=== PATIENT | female | born 1950 | race Caucasian/White ===

== ENCOUNTER 2018-08-20 00:44 | Outpatient (CLI) | payer MEDICARE, BC, SELFPAY ==
--- NOTE | 2018-08-20 10:57 | DI.MAMMO_ITS ---
SYMPTOMS/DIAGNOSIS: SCREENING, Z12.31 BILATERAL SCREENING MAMMOGRAM: Mammograms were interpreted according to the usual protocol including computer analysis with CAD system, tomosynthesis and C view imaging. Comparison is made with exams from 2010 through 2016. The breasts are composed of scattered fibroglandular densities, breast density category B. No suspicious masses or suspicious microcalcifications are seen. There has been no significant change. IMPRESSION: Category 1B, negative mammogram. Routine screening is recommended. [facility] ASSESSMENT OF FINDINGS: Negative. Category 1. Patient will receive a letter notifying them of these results. BI-RADS category B. There are scattered areas of fibroglandular density.
== END 2018-08-20 01:04 ==
PROVIDERS: PCP Family Medicine; Visit Provider Family Medicine
DX: Z12.31 Encounter for screening mammogram for malignant neoplasm of breast (principal)
CPT/HCPCS: 77063; 77067

== ENCOUNTER → 2018-08-21 13:34 | Outpatient (BNVA) | payer MEDICARE, BC, SELFPAY | PROVIDERS: PCP Family Medicine; Referring Provider Family Medicine; Visit Provider Orthopaedic Surgery | DX: M17.12 Unilateral primary osteoarthritis, left knee (principal) | CPT/HCPCS: 20610; 99211; 99213; J7325 ==

== ENCOUNTER → 2018-11-25 10:57 | Outpatient (BNVA) | payer MEDICARE, BC, SELFPAY | PROVIDERS: PCP Family Medicine; Referring Provider Family Medicine; Visit Provider Orthopaedic Surgery | DX: M17.11 Unilateral primary osteoarthritis, right knee (principal) | CPT/HCPCS: 20610; 99211; 99213; J7325 ==

== ENCOUNTER → 2019-06-18 10:56 | Outpatient (BNVA) | payer MEDICARE, BC, SELFPAY | PROVIDERS: PCP Family Medicine; Referring Provider Family Medicine; Visit Provider Orthopaedic Surgery | DX: M17.12 Unilateral primary osteoarthritis, left knee (principal); M17.11 Unilateral primary osteoarthritis, right knee | CPT/HCPCS: 20610; 99211; 99213; J7325 ==

== ENCOUNTER 2019-08-14 11:25 | Outpatient (CLI) | payer MEDICARE, BC, SELFPAY ==
--- NOTE | 2019-08-14 10:59 | DI.RAD_ITS ---
EXAM: XR KNEE LT 2V AP,LAT INDICATION: oa left knee. COMPARISON: XR KNEE RT 2V AP,LAT from 08/14/2019 TECHNIQUE: 2D digital imaging was performed. FINDINGS: There are severe degenerative changes of the patellofemoral joint, with a foaa-fg-onro appearance. There is prominent spurring. A small joint effusion is seen. Grossly degenerative changes of the fe moral tibial joints, greater medially. There is some lateral subluxation of the tibia with respect t o the distal femur. Venous varicosities are seen medially. IMPRESSION: Severe degenerative changes of the patellofemoral joint.
--- NOTE | 2019-08-14 10:59 | DI.RAD_ITS ---
EXAM: XR KNEE RT 2V AP,LAT INDICATION: OA R KNEE. COMPARISON: RIGHT KNEE 3 VIEWS from 03/07/2015 TECHNIQUE: 2D digital imaging was performed. FINDINGS: Again noted are severe degenerative changes of the patellofemoral joint with prominent spurring and a zggb-[id number]-[id number] appearance. There is also spurring from the femoral condyles and tibial plateaus but n o significant joint space narrowing. IMPRESSION: Severe degenerative changes of the patellofemoral joint.
--- NOTE | 2019-08-14 11:00 | DI.RAD_ITS ---
EXAM: XR STANDING ALIGNMENT INDICATION: OA R KNEE. COMPARISON: No exams were available for comparison TECHNIQUE: 2D digital imaging was performed. FINDINGS: There is bilateral acetabular spurring. The hip joint spaces are well maintained. There is no sign ificant leg length discrepancy. There are some degenerative changes of both knees, with spurring fro m the femoral condyles, tibial plateaus as well as patellofemoral joints. Some venous varicosities a re seen greater on the right side of the lower leg. There is mild bilateral ankle joint space narrow ing. IMPRESSION: Degenerative changes of both knees. No significant leg length discrepancy.
== END 2019-08-14 11:45 ==
PROVIDERS: PCP Family Medicine; Referring Provider Family Medicine; Visit Provider Student in an Organized Health Care Education/Training Program
DX: M25.462 Effusion, left knee (principal); M25.562 Pain in left knee; M25.561 Pain in right knee; M17.11 Unilateral primary osteoarthritis, right knee; M17.12 Unilateral primary osteoarthritis, left knee
CPT/HCPCS: 20610; 99214; 73560; 77073; J1040; J7325

== ENCOUNTER → 2019-09-28 10:36 | Outpatient (BNVA) | payer MEDICARE, BC, SELFPAY | PROVIDERS: PCP Family Medicine; Referring Provider Family Medicine; Visit Provider Student in an Organized Health Care Education/Training Program | DX: M17.12 Unilateral primary osteoarthritis, left knee (principal); M17.11 Unilateral primary osteoarthritis, right knee; Z98.890 Other specified postprocedural states; I10 Essential (primary) hypertension | CPT/HCPCS: 99213 ==

== ENCOUNTER 2019-11-02 02:47 | Outpatient (CLI) | payer MEDICARE, BC, SELFPAY ==
[2019-11-02 13:11] LABS: ALT 48 U/L (14-59); AST 33 U/L (15-37); Albumin 3.8 g/dL (3.4-5.0); Alkaline Phosphatase 74 U/L (46-116); Anion Gap 8.2 mmol/L (3-11); BUN 12 mg/dL (7-18); CO2 29.8 mmol/L (21.0-32.0); CREATININE 0.58 mg/dL (0.55-1.02); Calcium 8.9 mg/dL (8.5-10.1); Calculated LDL 66 mg/dL; Chloride 100 mmol/L (98-107); Cholesterol 151 mg/dL (<200); Glucose 95 mg/dL (74-106); HDL Cholesterol 77 mg/dL (40-60); Potassium 3.3 mmol/L (3.5-5.1); Sodium 138 mmol/L (136-145); Total Protein 6.6 g/dL (6.4-8.2); Triglyceride 40 mg/dL (<150)
== END 2019-11-02 03:07 ==
PROVIDERS: PCP Family Medicine; Visit Provider Family Medicine
DX: I10 Essential (primary) hypertension (principal); E55.9 Vitamin D deficiency, unspecified; E78.00 Pure hypercholesterolemia, unspecified
CPT/HCPCS: 36415; 80053; 80061; 82306

== ENCOUNTER → 2019-11-05 09:37 | Outpatient (BNVA) | payer MEDICARE, BC, SELFPAY | PROVIDERS: PCP Family Medicine; Referring Provider Family Medicine; Visit Provider Student in an Organized Health Care Education/Training Program | DX: M17.11 Unilateral primary osteoarthritis, right knee (principal); M17.12 Unilateral primary osteoarthritis, left knee | CPT/HCPCS: 99212 ==

== ENCOUNTER 2019-11-26 01:29 | Outpatient (CLI) | payer MEDICARE, BC, SELFPAY ==
--- NOTE | 2019-11-26 10:15 | DI.US_ITS ---
APPROVED REPORT EXAM: Comprehensive 2D, Doppler, and color-flow Echocardiogram Patient Location: Out-Patient Thermal Technician: Adriana Marroquin RDCS (AE) Rhythm: NSR with BBB Indications: essential ( primary) hypertension I10 cardiac murmur R01.1 Conclusion Left Ventricle : The left ventricle is normal size. The left ventricular systolic function is normal. The left ventricular ejection fraction is within the normal range. Borderline left ventricular hyper trophy. Asymmetric septal thickening is noted. There is normal LV segmental wall motion. Impaired rel axation but normal diastolic filling. LVEF is estimated to be 55-60%. Right Ventricle : Right ventricle is normal in size. The right ventricular systolic function is appea rs normal. Atria : Left atrium is mildly dilated. The right atrium size is normal. Aortic Valve : Aortic valve leaflets are mildly thickened. Aortic valve is probably trileaflet. There is no aortic valvular stenosis. Mild aortic regurgitation. Mitral Valve : Mitral valve leaflets are mildly thickened, but open well. Mild mitral regurgitation. No evidence of mitral valve stenosis. Tricuspid Valve : Tricuspid valve leaflets are mildly thickened but open well. Mild tricuspid regurg itation. Great Vessels : IVC is normal in size and collapses >50% with inspiration. Estimated RVSP is 26-29 m mHg. There is no prior echocardiogram available for comparison. Wall motion Left Ventricle The left ventricle is normal size. The left ventricular systolic function is normal. The left ventric ular ejection fraction is within the normal range. Borderline left ventricular hypertrophy. Asymmetri c septal thickening is noted. There is normal LV segmental wall motion. Impaired relaxation but sweetie l diastolic filling. LVEF is estimated to be 55-60%. Right Ventricle The right ventricle is normal size. The right ventricular systolic function is appears normal. Atria Left atrium is mildly dilated. The right atrium size is normal. Aortic Valve Aortic valve leaflets are mildly thickened. Aortic valve is probably trileaflet. There is no aortic v alvular stenosis. Mild aortic regurgitation. Mitral Valve Mitral valve leaflets are mildly thickened, but open well. No evidence of mitral valve stenosis. Mild mitral regurgitation. Tricuspid Valve Tricuspid valve leaflets are mildly thickened but open well. Mild tricuspid regurgitation. Pulmonic Valve Pulmonic valve is not well visualized. Great Vessels The aortic root is normal in size. The ascending aorta is mildly dilated. IVC is normal in size and c ollapses >50% with inspiration. Estimated RVSP is 26-29 mmHg. Pericardium trivial circumfrencial pericardial effusion 2D Dimensions IVSd 1.25 cm F: 0.6-1.0 LV EDV A2C 107.6 mL PWd 1.10 cm F: 0.6 - 1.0 LV EDV A4C 71.5 mL LVDd 5.20 cm F: 3.8 - 5.2 LA Volume Index Biplane 42.9 mL/m2 LVDs 3.65 cm F: 2.2 - 3.5 LA Area A4C 20.83 cm2 Aortic Root 3.10 cm F: 2.7 - 3.3 LA Area A2C 23.39 cm2 RVID Base (AP4) 3.60 cm (M/F) 2.5-4.1 EF AP4 61.1 % RA Area A4C 18.88 cm2 EF AP2 50.2 % LVOT 1.95 cm (M/F) 1.5-2.5 EF BP 52.2 % Ascending Aorta 3.79 cm F: 2.3 - 3.1 IVC 2.04 cm LVEF (Teich) 56.4 % TAPSE 2.57 cm (M/F) <1.7 LVEF (Light's) 52.20 % F: 54 - 74 LV Volume 67.15 mL F: 46 - 106 LV Volume Index 36.49 mL/m2 F: 29 - 61 FS 29.70 % LV Diastology MV E' medial 0.042 (>0.07 m/s) E/A Ratio 0.6 LV E/e MED 13.35 (<14) PV S/D Ratio 1.83 MV E' lateral 0.060 (>0.1 m/s) TR Peak Velocity 2.57 m/s LV E/e LAT 9.25 (<14) Pulm Vein s 0.60 m/s Pulm Vein d 0.33 m/s Pulm Vein a 0.36 m/s LA vol/ BSA A2C s A-L 42.4 mL/m2 LA vol/ BSA A4C s A-L 38.2 mL/m2 Aortic Valve LVOT Area 3.00 cm2 AoV Area Vmax 2.14 cm2 LVOT Vmax 1.32 m/s AoV Area/ BSA (Vmax) 1.16 cm2/m2 LVOT Mean Stefan. 1.04 m/s CHRISTOPHE Mean Stefan. 2.44 cm2 LVOT Peak Gr. 7.0 mmHg CHRISTOPHE Mean Stefan. Index 1.32 cm2/m2 LVOT Mean Gr. 4.6 mmHg AV Regurg Decel. 1435 msec LVOT VTI 0.316 m AoV Vmax 1.86 (0.5-1.3 m/s) AoV Mean Stefan. 1.28 m/s AoV Peak Grad 13.8 mmHg LVOT SV 94.65 mL AoV Mean Grad 7.3 (<5 mmHg) AoV VTI 0.393 (0.18-0.25 m) AoV Area VTI 2.41 (2.5-4.5 cm2) AoV Area/ BSA (VTI) 1.31 cm/m2 Mitral Valve MV E Max Stefan. 0.56 (0.4-1.3 m/s) Vena Contracta 0.33 (0-0.3 cm) MV A Velocity 0.90 (0.4-1.3 m/s) RVOT Peak Gr. 1.99 mmHg E/A Ratio 0.60 RVOT Mean Gr. 0.95 mmHg MV Decel. Time 244 (160-240 msec) MV PHT 71 msec MVA PHT 3.10 cm2 PV Peak Velocity 0.79 (0.5-1.5 m/s) RVOT Peak Stefan. 0.71 m/s RVOT VTI 0.133 m Tricuspid Valve TR P. Gradient 26.5 mmHg TV Regurg Vmax 2.57 m/s RAP Estimate 3.00 mmHg RVSP 29.5 mmHg
== END 2019-11-26 01:49 ==
PROVIDERS: PCP Family Medicine; Visit Provider Family Medicine
DX: R01.1 Cardiac murmur, unspecified (principal); I10 Essential (primary) hypertension; I35.1 Nonrheumatic aortic (valve) insufficiency
CPT/HCPCS: 93306

== ENCOUNTER 2019-12-09 13:59 | Outpatient (CLI) | payer MEDICARE, BC, SELFPAY ==
[2019-12-09 15:16] LABS: HCT 38.2 % (36.0-46.0); HGB 12.5 g/dL (12.0-15.5); Mean Corp. HGB Concentration 32.7 g/dL (32.0-36.0); Mean Corpuscular Hemoglobin 30.1 pg (27.0-33.0); Mean Platelet Volume 8.5 fL (8.0-11.0); Platelet Count 253 x1000/uL (130-400); RBC 4.15 m/cumm (4.00-5.20); RBC Distribution Width 13.7 % (11.7-14.6); White Blood Cell Count 5.54 k/cumm (4.4-10.8)
[2019-12-09 16:16] LABS: Anion Gap 8.1 mmol/L (3-11); BUN 13 mg/dL (7-18); CO2 29.9 mmol/L (21.0-32.0); CREATININE 0.64 mg/dL (0.55-1.02); Calcium 8.9 mg/dL (8.5-10.1); Chloride 102 mmol/L (98-107); Glucose 100 mg/dL (74-106); Sodium 140 mmol/L (136-145)
== END 2019-12-09 14:19 ==
PROVIDERS: PCP Family Medicine; Visit Provider Student in an Organized Health Care Education/Training Program
DX: M25.561 Pain in right knee (principal); M17.11 Unilateral primary osteoarthritis, right knee; I10 Essential (primary) hypertension; Z01.818 Encounter for other preprocedural examination; Z01.812 Encounter for preprocedural laboratory examination
CPT/HCPCS: 36415; 80048; 85027

== ENCOUNTER 2020-05-05 13:00 | Outpatient (CLI) | payer MEDICARE, BC, SELFPAY | END 2020-05-05 13:20 | PROVIDERS: PCP Family Medicine; Visit Provider Student in an Organized Health Care Education/Training Program | DX: Z01.818 Encounter for other preprocedural examination (principal); M17.11 Unilateral primary osteoarthritis, right knee ==

== ENCOUNTER 2020-05-09 01:42 | Outpatient (CLI) | payer MEDICARE, BC, SELFPAY ==
[2020-05-09 10:12] LABS: HCT 38.4 % (36.0-46.0); HGB 12.8 g/dL (12.0-15.5); Mean Corp. HGB Concentration 33.3 g/dL (32.0-36.0); Mean Corpuscular Volume 90.1 fL (80-95); Mean Platelet Volume 8.5 fL (8.0-11.0); Platelet Count 251 x1000/uL (130-400); RBC 4.26 m/cumm (4.00-5.20); RBC Distribution Width 13.2 % (11.7-14.6); White Blood Cell Count 5.42 k/cumm (4.4-10.8)
[2020-05-09 11:16] LABS: Anion Gap 9.2 mmol/L (3-11); BUN 22 mg/dL (7-18); CO2 26.8 mmol/L (21.0-32.0); CREATININE 0.57 mg/dL (0.55-1.02); Calcium 8.8 mg/dL (8.5-10.1); Chloride 98 mmol/L (98-107); Glucose 100 mg/dL (74-106); Potassium 4.1 mmol/L (3.5-5.1); Sodium 134 mmol/L (136-145)
[2020-05-11 14:51] LABS: COVID-19 RT-PCR Result NEGATIVE (Negative)
== END 2020-05-09 02:02 ==
PROVIDERS: PCP Family Medicine; Visit Provider Student in an Organized Health Care Education/Training Program
DX: M25.561 Pain in right knee (principal); M17.11 Unilateral primary osteoarthritis, right knee; Z03.818 Encounter for observation for suspected exposure to other biological agents ruled out; Z01.818 Encounter for other preprocedural examination; Z01.812 Encounter for preprocedural laboratory examination
CPT/HCPCS: 36415; 80048; 85027; U0003

== ENCOUNTER → 2020-05-11 07:47 | Outpatient (BNVA) | payer MEDICARE, BC, SELFPAY | PROVIDERS: PCP Family Medicine; Referring Provider Family Medicine; Visit Provider Student in an Organized Health Care Education/Training Program | DX: R69 Illness, unspecified (principal) ==

== ENCOUNTER 2020-05-11 08:27 | Observation (INO) | payer MEDICARE, BC, SELFPAY ==
[2020-05-11] VITALS (9 sets, daily range): BP systolic 112–167; BP diastolic 61–90; PULSE 57–72; RESP 11–18; TEMP 36.2–36.6; O2SAT 94–100
[2020-05-11] MEDS: Celecoxib 200 MG CAP 400 MG PO (09:34)
[2020-05-11] MEDS: Acetaminophen 500 MG TAB 1000 MG PO (09:34)
[2020-05-11] MEDS: Gabapentin 300 MG CAP PO (09:34)
[2020-05-11] MEDS: Lactated Ringers 1,000 ML 80 ML IV ×2 (09:45→13:55)
[2020-05-11] MEDS: Bupivacaine 0.5% Pres-Free 30 ML VIAL (10:33)
[2020-05-11] MEDS: ceFAZolin 2 GM/50 ML BAG IVPB (11:00)
--- NOTE | 2020-05-11 11:06 | W.PM.DS.N ---
Date of service: 05/11/20 DS: Diagnosis Discharge Diagnosis (1) Localized osteoarthritis of right knee: Status: Chronic Discharge Plan Disposition Patient Disposition: HOME Condition: Good Discharge Details Reason For Visit: R TOTAL KNEE Admit Date/Time: 05/11/20 08:27 Admit Provider: Alex Cota Attending Provider: Alex Cota Primary Care Provider: Nicci Castelan [facility] Hospital Course: Patient was admitted to the medical/surgical floor following the procedure. The surgery was tolerated well without any notable medical, surgical, or anesthetic complications. Mobilization began postoperatively. Claire was voiding spontaneously. Vitals were stable. Physical therapy worked with the patient and was cleared for discharge home. No acute medical issues. Pain was controlled on oral regimen. Home Meds and New Rx's Prescriptions: New celecoxib 200 mg capsule 200 mg PO BID PRN (Reason: pain) Qty: 60 RF: 1 aspirin 81 mg tablet,delayed release (DR/EC) 81 mg PO BID Qty: 60 RF: 0 acetaminophen 500 mg tablet 1,000 mg PO Q8H PRN (Reason: pain) Qty: 90 RF: 3 pantoprazole 40 mg tablet,delayed release (DR/EC) 40 mg PO DAILY Qty: 30 RF: 0 docusate sodium [Colace] 100 mg capsule 100 mg PO BID PRNQty: 10 RF: 0 oxycodone 5 mg tablet 5 mg PO Q6H PRN PRNQty: 16 RF: 0 ondansetron 4 mg tablet,disintegrating 4 mg PO Q8H PRNQty: 6 RF: 0 Continued hydrochlorothiazide 25 mg tablet 25 mg PO DAILY Qty: 90 RF: 5 losartan 100 mg tablet 100 mg PO DAILY Qty: 90 RF: 5 potassium chloride 20 mEq tablet extended release 20 meq PO DAILY Qty: 90 RF: 5 magnesium 250 MG tablet 500 mg PO HS RF: 0 cholecalciferol (vitamin D3) 1,000 UNIT capsule 1,000 unit PO HS RF: 0 ascorbic acid (vitamin C) [Vitamin C] 250 MG tablet 500 mg PO DAILY PRNRF: 0 vitamin B complex 1 EACH tablet 1 ea PO DAILY RF: 0 Co Q-10 (with Vit E) 1 EACH capsule 1 ea PO DAILY RF: 0 atorvastatin 40 mg tablet 40 mg PO HS RF: 0 doxazosin 1 mg tablet 1 mg PO HS RF: 0 Discontinued ASPIRIN 81 MG tablet 81 mg PO DAILY RF: 0 Discharge Instructions Additional Instructions: Dr. Cota?s Total Knee Discharge Instructions Activity: The most important activity is to walk. You should try to take short walks a few times a day. It is important that when resting you work on keeping the knee straight. Avoid putting a pillow behind the knee as this will encourage flexion. Work on range of motion exercises as provided by Physical Therapy and the preoperative booklet. - Start outpatient physical therapy within 2 weeks. - You should wear the KO hose on both legs for 2 weeks. Dressing: Keep the surgical dressing (Mepilex) in place for at least one week. If you went home on the surgical day, you should remove the PASCUAL wrap on the second day and then apply the KO hose. The dressing may get wet after 3 days but avoid soaking the dressing. If it gets wet, just lightly pat dry. Most patient prefer to cover with ClingWrap or Saran Wrap to keep the dressing dry. After the first week, the dressing may be removed and replaced with light gauze and tape or nothing. Medications: - You should take Tylenol and anti-inflammatory Celebrex as your primary pain control medications - You have been prescribed a stronger pain medication Oxycodone for breakthrough pain, take as needed as prescribed. - You have also been prescribed a stomach acid reduction agent Pantoprozole to help reduce stomach acid and reflux. - You will be taking Aspirin 81mg twice a day for DVT prevention unless instructed otherwise. - If you have constipation you should take Colace or Miralax (both [id number]). It takes most people 3-4 days to have a bowel movement. - You should use the ice machine to help treat swelling and pain. As long as there is a barrier between the CryoCuff and your skin you can keep it on as much as desired. It is usually recommended to do about 30 minutes of treatment and then take a break for 30. Follow-up: 2 weeks. You should also call physical therapy to work on scheduling outpatient therapy sessions which can begin at 2 weeks. If you have any acute concerns or questions, please do not hesitate to contact the office at [phone]. You may contact Dr. Cota with any questions after hours through the hospital at [phone] or on his cell phone at [phone]. Referrals: [facility] [Provider Group] Alex Cota MD [ [facility] STAFF PHYSICIAN] - Activity:: Activity as Tolerated Equipment/Supplies:: Walker Diet:: As Tolerated Discharge Orders Discharge Orders: Discharge Order (Routine); Ordered 05/11/20 Ordered By: Alex Cota DS: Summary Status at Discharge Functional status at discharge: uses cane/walker Overall status at discharge: patient is progressing back to baseline Mental Status: mental status grossly normal Speech and Movement: speech and movement normal Mood: congruent mood Affect: normal affect Exam Psych Mental Status: mental status grossly normal Speech and Movement: speech and movement normal Mood: congruent mood Affect: normal affect DS: Data Vitals/I&O Vitals and I&O: Vital Signs Temperature 36.5 C 05/11/20 09:17 Pulse 72 05/11/20 09:17 Pulse Rhythm Regular 05/11/20 09:17 Respiratory Rate 16 05/11/20 09:17 Respiratory Effort 05/11/20 09:17 Respiratory Depth Normal 05/11/20 09:17 Respiratory Pattern Normal 05/11/20 09:17 Blood Pressure 140/89 05/11/20 09:17 Pulse Oximetry 97 05/11/20 09:17 Oxygen Delivery Method Room Air 05/11/20 09:17 Oxygen Flow Rate 0 05/11/20 09:17 Pain Level 0 05/11/20 09:17 Intake & Output 05/10/20 05/10/20 05/11/20 11:59 23:59 11:59 Weight 73.028 kg 71.9 kg [facility] Medical History Arthritis of left knee (Inactive) Chondromalacia of patella (Resolved) Decreased hearing of both ears (Acute 07/05/15) Essential hypertension (Acute) Family history of colon cancer (Resolved) Hx of head injury (Acute) 2009 with major blood loss, with hospitalization and transfusion. Per pt. all is resolved. Hypercholesterolemia (Acute 04/06/13) Left bundle branch block (Chronic) echo and MPI normal Normal colonoscopy (Acute) Systolic murmur (Acute) F/U with Dr. Castelan, regarding murmur. No issues at this time. Vitamin D deficiency (Chronic) Surgical History Hx of tonsillectomy (Chronic) as a child Hx of wisdom tooth extraction (Acute) Family History Mother , 65 Essential hypertension Stroke Father , 75 Colon cancer Brother Essential hypertension Stroke Maternal Grandfather Essential hypertension Heart disease Paternal Grandfather No problems noted. Maternal Grandmother , 83 Diabetes Paternal Grandmother Heart disease Son , 7 days Ornithine transcarbamoylase deficiency Down syndrome Son , 5 days Ornithine transcarbamoylase deficiency Daughter Ornithine transcarbamoylase deficiency Daughter Ornithine transcarbamoylase deficiency Thyroid cancer Social History Smoking/Tobacco Use Status: Never Alcohol Intake: current Alcohol Intake frequency: a few times a week Alcohol type: wine Drug use: Rarely Substance use type: marijuana Caregiver/Support person: No Household members: spouse, family and other Details: daughter,son-in-law and 2 grandchildren Communication Needs: Hard of Hearing Do you need help understanding health information?: Rarely Pets and animals: Yes Pets and animals: cat(s) and dog(s) Do you think of yourself as: straight/heterosexual Current gender identity: female What is your relationship status?: How often do you talk on the phone with friends or family?: once per week How often do you get together with friends or relatives?: twice per week How often do you attend baptism or gnosticist services?: decline to answer Do you belong to any clubs or organized social groups?: yes Panel score (0-1 are the most socially isolated patients): 3 What type of physical activity do you participate in: walking, weight lifting and other Details: hiking with poles Frequency: 3-4 times per week Ana/Gnosticist: None Special ana needs: No Seatbelt use: always Helmet use: Yes Helmet use: always Drive intox or ride w/intox service car driver: No Do you feel safe in your relationship?: Yes
[2020-05-11] MEDS: Bupivacaine 0.25% Pres-Free 30 ML VIAL (11:31)
[2020-05-11] MEDS: Ketorolac 30 MG/ML VIAL (11:31)
[2020-05-11] MEDS: Normal Saline 20 ML VIAL (11:31)
--- NOTE | 2020-05-11 12:20 | ROE_ITS ---
Date of service: 05/11/20 Time of Service: 12:20 Operative Note Operative Note DATE OF PROCEDURE: 05/11/20 PRE-OP DIAGNOSIS: Right Knee Osteoarthritis POST-OP DIAGNOSIS: same PROCEDURE: Right Total Knee Replacement SURGEON: Alex Cota DIRECT CARE PROFESSIONAL: Randall Covington ANESTHESIA: regional and spinal ESTIMATED BLOOD LOSS: 200 PATHOLOGY: none sent TOURNIQUET TIME: 0 COMPLICATIONS: None Patient was transported to: PACU Patient's condition: stable Implants: 1. Depuy Attune Cementless Cruciate Retaining Femoral Component, Size 4 2. Depuy Attune Cementless Rotating Platform Tibial Component, Size 3 3. Depuy Attune 4x5mm CR/RP Poly 4. Depuy Attune Patellar Component, Size 35mm Indications: I have seen Claire in clinic for symptoms of knee arthritis, confirmed with radiographic findings. Claire has exhausted nonoperative methods and was having significant limitations in daily function and desired better function and less pain. I discussed the technical details of a knee replacement. I explained the risks of the procedure to include, but not limited to, bleeding, infection, pain, stiffness, fracture, damage to nerves and vessels, damage to muscles and tendons, loosening, need for repeat procedure, blood clot and cardiopulmonary demise. Despite these risks, Claire elected to proceed. Findings: There was significant signs of arthritis throughout the knee, in all 3 compartments with significant patellar deformity. Procedure Description: Claire was greeted in the preoperative holding area where the correct side was identified and marked. The consent was reviewed with the patient and signed. The history and physical was updated. All questions were answered. Preoperative medications were administered: Acetaminophen 1000mg, Celebrex 400mg, and Gabapentin 300mg. An adductor canal block was then administered by the anesthesia team in the PACU. Claire was taken back to the operating room. A spinal anesthestic was then administered. The patient was placed into the supine position on the operating room table. A nonsterile tourniquet was placed high onto the leg but only used for cementing. Posts were placed for positioning during the procedure. All bony prominences were well padded. Prophylactic antibiotics in the form of Cefazolin were administered. 1g of Tranxemic Acid was given intravenously within 30 minutes of incision. The right leg was then prepped with Chloraprep and draped in a standard fashion with impervious stockinette. A second prep with Chloraprep was performed prior to application of Iodine impregnated skin protection. A timeout to confirm correct identity, side and site, procedure, allergies, anesthesia, and medical concerns was performed. With the knee in some flexion, a midline incision was made overlying the knee. Full thickness skin flaps were raised once the extensor mechanism was encountered. These were raised medially and laterally. Any bleeding was controlled with electrocautery. Once the extensor mechanism was fully exposed, a medial parapatellar arthrotomy was performed in a flexed position. All bleeding from the arthrotomy and the geniculate arteries was coagulated. A medial subperiosteal peel was performed with electrocautery to the midcoronal plane. The fat pad was removed while keeping the patellar tendon protected. The anterior distal femur synovium was removed for later visualization. The ACL and PCL were resected and the anterior horn of the lateral meniscus was transected. The knee was then flexed with the patella everted. Large osteophytes from the tibia were removed. Large o steophytes from the femur were removed. Large osteophytes from the patellar were removed and there was some noted deformity due to chronic maltracking. Using a step drill, and based on preoperative templating, the femoral canal was entered. This was done with a step drill without any difficulty. The intramedullary distal femoral cut guide was inserted, set to a 5 degree valgus cut and 9mm cut thickness. There was some hypoplasia of the lateral femoral condyle and any remnant cartilage of the medial femoral condyle was removed for appropriate thickness. The distal femoral cut guide was then held in position and pinned. With the soft tissues protected, the distal cut was performed. This was passed over a few times to ensure a planar cut. I then turned attention to the tibia. The extramedullary guide was placed onto the leg. The distal aspect was slid medial to adjust for position of center of ankle and stay in line with shaft of the tibia. Approximately 3-5 degrees of posterior slope was kept in the proximal cutting guide. The center of the guide was aligned with the PCL. The stylus was used to assess cut thickness. The medial side, most involved side, was set for a 6mm cut which corresponded to 8mm laterally. This was then held in position and pinned into place with 2 additional pins and a cross pin for stability. The medial and lateral collateral ligaments were protected and the cut was performed. With this completed, it was assessed and noted to be of appropriate dimensions. The guide was removed. A spacer block was inserted and the knee was brought into extension. The 5mm spacer block provided full extension, without hyperextension and with stability of both the medial and lateral collateral ligaments was assessed. The pins from the femur and the tibia were then removed. The distal femur was then sized. The anterior stylus was placed onto the lateral ridge of the anterior femur. This indicated a size 4 femur. The external rotation of the guide was adjusted to 5 degrees to match the epicondylar axis, perpendicular to [place]?s line. The 4-in-1 cutting guide was the placed. The posterior medial femur cut was evaluated and appeared of good thickness. The spacer block was inserted underneath the cutting guide and stability was confirmed in 90 degrees of flexion. An micheal wing was used to confirm appropriate position of the anterior cut to avoid notching. This cutting guide was ensured to be flush on the cut surface and then pinned into place with headed pins. While protecting the soft tissues, quad tendon, and collateral ligaments, the anterior and posterior cuts were performed with a saw. The central two pins were removed and the posterior and anterior chamfers were cut next. The notch-cutting guide was placed. This was pinned to lateralize the femoral component as much as possible while keeping it flush on the cut surface. This was then pinned into position. A reciprocating saw was used to make the notch cut. A rasp smoothed the cut surfaces. The medial and lateral menisci were removed. A trial femoral component was then inserted, impacted down to the cut surfaces, and the lug holes were drilled. A provisional trial tibial component was placed and the knee was brought through range of motion. There was noted to be excellent extension and flexion. There was no significant instability. The patella was tracking without thumbs. A size 5mm polyethylene component provided the best range of motion and stability with less than 2mm gapping with medial and lateral stress and full extension without significant hyperextension. The tibial cut surface was fully exposed. The tibia was then sized as a 3. The tibia had been previously marked during trialing to correspond to the center of the tibial component to help with rotation. The trial was aligned to this randall, approximately rotated to the medial 1/3rd of the tibial tubercle. The trial was pinned into place. The tibia was prepared with a reamer and a keel punch and lug holes. The knee was then brought into extension and the patella was measured as 14mm in the lowest trough. Using the patellar clamp and cut guide, this was resected to a flat surface with at least 13mm of thickness remaining. The size 35 patella fit the best. This was oriented and then clamped into position. The lugs were drilled. The trial components were removed. The final components were opened on the back table. The periosteal and capsular tissues, especially posteriorly, around the knee were then systematically injected with a periarticular cocktail consisting of 50cc 0.25% Marcaine, 30mg Ketorolac, 20cc of Exparal and 50cc of injectable saline. The knee was thoroughly irrigated with a pulse lavage and dried. Irrisept was also used to irrigate the tissues. On the back table, with the implants opened, the cement was mixed. One batche of high viscosity cement were prepared with vacuum assistance. After the cement was ready a small amount was placed on the cut surface of the patella and the patellar button was clamped into position and held. During this process attention was turned to the gutters of the knee and for all interfaces for any excess cement. While the cement was hardening, the cementless knee components were placed. Starting with the tibial component, the tibia was subluxed anteriorly and the lug holes of the component were lined up. The tibia was then impacted with an impactor and mallet until the tibial component was in contact with the tibia. The final polyethylene component was inserted. Then, the femoral component was inserted. The lug holes were aligned and the component was impacted into position. The knee was irrigated with Irrisept chlorhexadine solution. This was allowed to sit in the knee for 3 minutes. After the cement had finally cured, approximately 15min, the clamp was removed from the patella and the knee was taken through range of motion. The patella was tracking with a no-thumbs technique. The capsule was then reapproximated with a No. 1 Vicryl at multiple locations. The capsule was finally closed with a No. 2 Stratafix, barbed suture. The tourniquet was then released and the arthrotomy appeared watertight without significant bleeding. The second dosing of 1g TXA was started. Deep tissues were then reapproximated with 0 Vicryl and 2-0 Vicryl. The skin was closed with a running 3-0 Monocryl in a subcuticular fashion. This was reinforced with skin glue. A Mepilex silver dressing was applied along with a [id number] PASCUAL wrap. A CryoCuff was applied. Claire was transferred to the hospital bed without difficulty an suffering no apparent complication. Claire has a good prognosis. Physical therapy will start today and without restrictions, weight-bearing as tolerated. Aspirin 81mg BID will be used for DVT prophylaxis.
[2020-05-11] MEDS: Ondansetron 4 MG/2 ML VIAL IVP (14:33)
--- NOTE | 2020-05-11 14:42 | IN_ITS ---
Date of service: 05/11/20 Time of Service: 14:42 PT Notes Visit Reasons: R TOTAL KNEE Physical Therapy Inpatient Initial Evaluation Date: 05/11/2020 Referring Doctor: Alex Cota MD PT Orders: PT CONSULT: Status post Ortho surgery. Status post right TKA. Precautions: Fall. Standard. WBAT on right LE Patient Profile/Admitting Diagnosis: This is a male that PMHX: Tear of the supraspinatus tendon Varicose veins of lower extremity Localized osteoarthritis of right knee Localized osteoarthritis of left knee Vitamin D deficiency Hypercholesterolemia Essential hypertension Decreased hearing of both ears Left bundle branch block Social History/Home Situation: Claire lives with and 6 kids in a private home with 2-3 steps to enter and a rail on one side. She was independent with all aspects of ADLs without the need for an assistive ambulatory device or adaptive equipment prior to surgery. Equipment Owned/DME: Front wheeled walker Subjective: Claire complained about dizziness during mobility assessment, vomited x1. She still stated that she would want to go home as she has her and her 6 kids who will be able to provide assistance for her as needed. Objective: General Observation: PASCUAL wraps on right LE. IV right UE. Mental Status: Alert and oriented x4 Pain: 2?3/10 ROM: Right Upper Extremity: Shoulder Flexion WFL. Shoulder abduction WFL. Elbow flexion WFL. Wrist flexion WFL. Opening and closing of hand WFL. Left Upper Extremity: Shoulder Flexion WFL. Shoulder abduction WFL. Elbow flexion WFL. Wrist flexion WFL. Opening and closing of hand WFL. Right Lower Extremity: Hip flexion WFL. Hip abduction WFL. Knee flexion allows up to 100 degrees. Knee extension 0 degrees. Ankle dorsiflexion WFL. Ankle plantarflexion WFL. Left Lower Extremity: Hip flexion WFL. Hip abduction WFL. Knee flexion WFL. Ankle dorsiflexion WFL. Ankle plantarflexion WFL. Strength: Right Upper Extremity: Shoulder flexors 5/5. Shoulder abductors 5/5. Elbow flexors 5/5. Elbow extensors 5/5. Aviation Survival Technician strong. Left Upper Extremity: Shoulder flexors 5/5. Shoulder abductors 5/5. Elbow flexors 5/5. Elbow extensors 5/5. Aviation Survival Technician strong. Right Lower Extremity: Hip flexors 5/5. Hip abductors 5/5. Knee flexors 3-/5. Knee extensors 3-/5. Ankle dorsiflexors 5/5. Ankle plantarflexors 5/5. Left Lower Extremity:Hip flexors 5/5. Hip abductors 5/5. Knee flexors 5/5. Knee extensors 5/5. Ankle dorsiflexors 5/5. Ankle plantarflexors 5/5. Sensation: DIminished on B LE with R>L as to pressure on bilateral lower extremities due to anesthesia. Bed Mobility/Transfers: Supine to sit standby assist Sit to supine contact-guard assist Sit to stand minimal assist Stand to sit contact-guard assist Bed to chair minimal assist Chair to bed minimal assist Gait: Patient tolerated short distance ambulation of 80 feet using front wheeled walker with step to gait pattern with contact-guard assist and wheelchair follow of nurse Griffin. Patient vomited x1 right after ambulation activity. Balance: Static Sitting: Good Dynamic Sitting: Good Static Standing: Fair Dynamic Standing: Fair Special Tests: Mobility Limitations Standardized Measure [facility] 6 clicks Basic Mobility Inpatient Short Form: Raw Score: 1750% deficit CMS Score: Informed Consent/Education: Patient instructed in purpose of PT consult and plan of care. Assessment: Claire demonstrates functional mobility decline requiring the use of a front wheeled walker for all mobility ADL performance, difficulty with walking, and weakness on the left knee major muscle groups resulting from postoperative status. Claire is a 69-year-old female with primary unilateral osteoarthritis of the right knee status post right total knee arthroplasty on postoperative day 0. Patient presents with clinical signs and symptoms consistent with current/ admitting diagnoses that have resulted to mobility limitations, gait instability, generalized weakness, and impairment of motor control as demonstrated by the following impairment level findings: 1. Decreased strength to R LE major muscle groups 2. Impaired standing balance 3. Impaired activity tolerance 4. Limitation of joint range of motion in R knee Impairments are contributing to the following functional limitations: 1. Inability to safely ambulate without assistive device and physical assistance 2. Increase completion time for mobility ADL performance 3. Increased fall risk 4. Inability to negotiate steps alone safely Patient is assessed as a 36449 moderate complexity based on the following: History: 69-year-old female with impairment level findings, functional limitations, and past medical history as indicated above Examination: Demonstrable impairment in strength, balance, and mobility level with underlying impairments and functional limitations as documented above Presentation:Evolving Decision Makin moderate complexity Goals: Goals X 3 days 1. Supine-Sit independent 2. Sit-Supine independent 3. Sit-Stand independent 4. Stand-Sit independent 5. Bed-Chair independent 6. Chair-Bed independent 7. Independent gait on level surface with use of least restrictive device for at least 300 feet without report of pain nor dyspnea 8. Independent stair negotiation while holding onto bilateral rails for at least 10 steps without report of pain nor dyspnea 9. Independent with home exercise program 10. Good static and dynamic standing balance/tolerance Plan of Care/Treatment Plan: 1-2x/day, 7 days/week x 1 week. Plan of care has been reviewed with the INPATIENT NURSING AIDE providing the service under Physical Therapy direction. Initiate Physical Therapy intervention for strengthening, bed mobility, transfers, gait, stairs, balance training, use of assistive device. DISCHARGE RECOMMENDATIONS: Home when medically cleared by ortho surgeon. TREATMENT CODE/TIME: 70324 x 20 minutes, 19504 x 28 beginning at 13:52 PM. Thank you for the opportunity to participate in the care of this patient. Avelina Garcia PT, DPT, CLT [facility] [place], [place]
[2020-05-11] MEDS: ceFAZolin 1 GM/50 ML BAG IVPB (18:03)
== END 2020-05-11 20:01 | disposition home or self-care (01) ==
LOC: PDS 13:07 → MS 13:09
PROVIDERS: Admitting Provider Student in an Organized Health Care Education/Training Program; PCP Family Medicine; Visit Provider Student in an Organized Health Care Education/Training Program
PROC: 0SRD0J9 Replacement of Left Knee Joint with Synthetic Substitute, Cemented, Open Approach (ICD-10-PCS; CPT 27447; principal; 2020-05-11 10:00)
DX: M17.11 Unilateral primary osteoarthritis, right knee (principal); M25.561 Pain in right knee; Z96.651 Presence of right artificial knee joint; I10 Essential (primary) hypertension; E78.00 Pure hypercholesterolemia, unspecified; G89.18 Other acute postprocedural pain
CPT/HCPCS: 27447; C1776; 76942; 97162; 97530; NC; G0378; J0690; J1100; J1885; J2405; J3490

== ENCOUNTER 2020-05-27 12:02 | Outpatient (CLI) | payer MEDICARE, BC, SELFPAY ==
--- NOTE | 2020-05-27 11:45 | DI.RAD_ITS ---
EXAM: XR KNEE RT 1V CLINICAL HISTORY: postop. TECHNIQUE: 2D digital imaging was performed. COMPARISON: CR XR KNEE LT 2V AP,LAT from 08/14/2019 CR XR KNEE RT 2V AP,LAT from 08/14/2019 CR XR STANDING ALIGNMENT from 05/27/2020 FINDINGS: BONES: No acute fracture is present. No bony destructive lesion is seen. A total knee prosthesis is noted. The components appear well aligned. JOINTS: The knee is normally aligned. A joint effusion is seen. IMPRESSION: Right total knee prosthesis. DATA REPOSITORY: RADIATION DOSE DELIVERED:
--- NOTE | 2020-05-27 11:45 | DI.RAD_ITS ---
EXAM: XR STANDING ALIGNMENT CLINICAL HISTORY: postop. TECHNIQUE: 2D digital imaging was performed. Standing AP views were performed from the pelvis throu gh the ankles. COMPARISON: CR XR STANDING ALIGNMENT from 08/14/2019 FINDINGS: BONES: No acute fracture is present. No bony destructive lesion is seen. At the level of the femoral heads, there is a mild overall leg length discrepancy with the right femoral head projecting a few mi llimeters higher than the left. There is bilateral acetabular spurring. JOINTS: Patient is now status post right total knee prosthesis. Degenerative changes are again noted of the left knee. There are mild degenerative changes of both ankles. SOFT TISSUE: Varicosities are seen in the soft tissues of the medial right lower leg. IMPRESSION: Status post right total knee prosthesis. Mild leg length discrepancy. DATA REPOSITORY: RADIATION DOSE DELIVERED:
== END 2020-05-27 12:22 ==
PROVIDERS: PCP Family Medicine; Referring Provider Family Medicine; Visit Provider Student in an Organized Health Care Education/Training Program
DX: Z96.651 Presence of right artificial knee joint (principal); Z47.1 Aftercare following joint replacement surgery; I10 Essential (primary) hypertension
CPT/HCPCS: 73560; 77073

== ENCOUNTER → 2020-06-23 13:12 | Outpatient (BNVA) | payer MEDICARE, BC, SELFPAY | PROVIDERS: PCP Family Medicine; Referring Provider Family Medicine; Visit Provider Student in an Organized Health Care Education/Training Program | DX: Z96.651 Presence of right artificial knee joint (principal); Z47.1 Aftercare following joint replacement surgery; M17.12 Unilateral primary osteoarthritis, left knee; M17.11 Unilateral primary osteoarthritis, right knee; I10 Essential (primary) hypertension ==

== ENCOUNTER 2020-07-22 02:34 | Outpatient (CLI) | payer MEDICARE, BC, SELFPAY ==
[2020-07-23 23:41] LABS: COVID-19 RT-PCR Result NEGATIVE (Negative)
== END 2020-07-22 02:54 ==
PROVIDERS: PCP Family Medicine; Visit Provider Student in an Organized Health Care Education/Training Program
DX: M17.12 Unilateral primary osteoarthritis, left knee (principal)
CPT/HCPCS: U0003

== ENCOUNTER 2020-07-22 07:58 | Outpatient (CLI) | payer MEDICARE, BC, SELFPAY ==
[2020-07-22 11:07] LABS: HCT 36.5 % (36.0-46.0); MCH 29.6 pg (27.0-33.0); MCHC 32.9 % (32.0-36.0); MCV 90.1 fL (80-95); MPV 8.7 fL (8.0-11.0); Platelet Count 261 10^3/uL (130-400); RBC 4.05 10^6/uL (3.93-5.22); RDW 13.2 % (11.7-14.6); RDW-SD 44.1 fL; WBC 4.59 10^3/uL (4.4-10.8)
[2020-07-22 11:53] LABS: Anion Gap 6.1 mmol/L (3-11); BUN 12 mg/dL (7-18); CO2 29.9 mmol/L (21.0-32.0); Calcium 9.1 mg/dL (8.5-10.1); Chloride 97 mmol/L (98-107); Glucose 96 mg/dL (74-106); Potassium 3.8 mmol/L (3.5-5.1); Sodium 133 mmol/L (136-145)
== END 2020-07-22 08:18 ==
PROVIDERS: PCP Family Medicine; Visit Provider Student in an Organized Health Care Education/Training Program
DX: M17.12 Unilateral primary osteoarthritis, left knee (principal); Z01.818 Encounter for other preprocedural examination
CPT/HCPCS: 36415; 80048; 85027; U0003

== ENCOUNTER → 2020-07-26 07:43 | Outpatient (BNVA) | payer MEDICARE, BC, SELFPAY | PROVIDERS: PCP Family Medicine; Referring Provider Family Medicine; Visit Provider Student in an Organized Health Care Education/Training Program | DX: R69 Illness, unspecified (principal) ==

== ENCOUNTER 2020-07-26 09:32 | Observation (INO) | payer MEDICARE, BC, SELFPAY ==
[2020-07-26] VITALS (8 sets, daily range): BP systolic 127–173; BP diastolic 72–99; PULSE 53–72; RESP 13–19; TEMP 35.3–36.7; O2SAT 96–100
[2020-07-26] MEDS: Gabapentin 300 MG CAP PO (10:12)
[2020-07-26] MEDS: Celecoxib 200 MG CAP 400 MG PO (10:12)
[2020-07-26] MEDS: Acetaminophen 500 MG TAB 1000 MG PO ×2 (10:12→16:29)
[2020-07-26] MEDS: Lactated Ringers 1,000 ML 80 ML IV (10:13)
[2020-07-26] MEDS: ceFAZolin 2 GM/50 ML BAG IVPB (11:44)
[2020-07-26] MEDS: Ketorolac 30 MG/ML VIAL (12:31)
[2020-07-26] MEDS: Bupivacaine 0.25% Pres-Free 30 ML VIAL (12:32)
[2020-07-26] MEDS: Normal Saline 20 ML VIAL (12:33)
[2020-07-26] MEDS: ceFAZolin 1 GM/50 ML BAG IVPB (16:29)
--- NOTE | 2020-07-26 16:43 | DSE_ITS ---
Date of service: 07/26/20 Time of Service: 16:43 DS: Diagnosis Discharge Diagnosis (1) Localized osteoarthritis of left knee: Status: Acute Discharge Plan Disposition Patient Disposition: HOME Condition: Good Discharge Details Reason For Visit: Left TKA Admit Date/Time: 07/26/20 09:32 Admit Provider: Alex Cota Attending Provider: Alex Cota Primary Care Provider: Nicci Castelan [facility] Course Hospital Course: Patient was admitted to the medical/surgical floor following the procedure. The surgery was tolerated well without any notable medical, surgical, or anesthetic complications. Mobilization began postoperatively. She was voiding spontaneously. Vitals were stable. Physical therapy worked with the patient and was cleared for discharge home. No acute medical issues. Pain was controlled on oral regimen. Home Meds and New Rx's Prescriptions: New aspirin 81 mg tablet,delayed release (DR/EC) 81 mg PO BID Qty: 60 RF: 0 acetaminophen [Tylenol Extra Strength] 500 mg tablet 500 mg PO Q6H PRNQty: 90 RF: 0 pantoprazole [Protonix] 40 mg tablet,delayed release (DR/EC) 40 mg PO DAILY Qty: 30 RF: 0 oxycodone 5 mg tablet 5 mg PO Q4H PRNQty: 18 RF: 0 celecoxib [Celebrex] 200 mg capsule 200 mg PO BID Qty: 60 RF: 0 Continued hydrochlorothiazide 25 mg tablet 25 mg PO DAILY Qty: 90 RF: 5 losartan 100 mg tablet 100 mg PO DAILY Qty: 90 RF: 5 potassium chloride 20 mEq tablet extended release 20 meq PO DAILY Qty: 90 RF: 5 magnesium 250 MG tablet 500 mg PO HS RF: 0 cholecalciferol (vitamin D3) 1,000 UNIT capsule 1,000 unit PO HS RF: 0 ascorbic acid (vitamin C) [Vitamin C] 250 MG tablet 500 mg PO DAILY PRNRF: 0 vitamin B complex 1 EACH tablet 1 ea PO DAILY RF: 0 Co Q-10 (with Vit E) 1 EACH capsule 1 ea PO DAILY RF: 0 atorvastatin 40 mg tablet 40 mg PO HS RF: 0 doxazosin 1 mg tablet 1 mg PO HS RF: 0 Discontinued acetaminophen 500 mg tablet 1,000 mg PO Q8H PRN (Reason: pain) Qty: 90 RF: 3 aspirin [Aspir-81] 81 mg Tablet,Delayed Release (Dr/Ec) 81 mg PO DAILY RF: 0 No Action ondansetron 4 mg tablet,disintegrating 4 mg PO Q8H PRNQty: 6 RF: 0 Discharge Instructions Additional Instructions: Dr. Cota?s Total Knee Discharge Instructions Activity: The most important activity is to walk. You should try to take short walks a few times a day. It is important that when resting you work on keeping the knee straight. Avoid putting a pillow behind the knee as this will encourage flexion. Work on range of motion exercises as provided by Physical Therapy and the preoperative booklet. - Start outpatient physical therapy within 2 weeks. - You should wear the KO hose on both legs for 2 weeks. Dressing: Keep the surgical dressing (Mepilex) in place for at least one week. If you went home on the surgical day, you should remove the PASCUAL wrap on the second day and then apply the KO hose. The dressing may get wet after 3 days but avoid soaking the dressing. If it gets wet, just lightly pat dry. Most patient prefer to cover with ClingWrap or Saran Wrap to keep the dressing dry. After the first week, the dressing may be removed and replaced with light gauze and tape or nothing. Medications: - You should take Tylenol and anti-inflammatory Celebrex as your primary pain control medications - You have been prescribed a stronger pain medication Oxycodone for breakthrough pain, take as needed as prescribed. - You have also been prescribed a stomach acid reduction agent Pantoprozole to help reduce stomach acid and reflux. - You will be taking Aspirin 81mg twice a day for DVT prevention unless instructed otherwise. - If you have constipation you should take Colace or Miralax (both [id number]-tee-[id number]). It takes most people 3-4 days to have a bowel movement. Follow-up: 2 weeks. You should also call physical therapy to work on scheduling outpatient therapy sessions which can begin at 2 weeks. If you have any acute concerns or questions, please do not hesitate to contact the office at [phone]. You may contact Dr. Cota with any questions after hours through the hospital at [phone] or on his cell phone at [phone]. Referrals: Alex Cota MD [ [facility] STAFF PHYSICIAN] - 08/12/20 8:45 am Activity:: Activity as Tolerated Equipment/Supplies:: Walker Diet:: As Tolerated Discharge Orders Discharge Orders: Discharge Order (Routine); Ordered 07/26/20 Ordered By: Ingris Lazo DS: Summary Status at Discharge Functional status at discharge: uses cane/walker Overall status at discharge: patient is progressing back to baseline Mental Status: mental status grossly normal Speech and Movement: speech and movement normal Mood: congruent mood Affect: normal affect Exam Psych Mental Status: mental status grossly normal Speech and Movement: speech and movement normal Mood: congruent mood Affect: normal affect DS: Data Vitals/I&O Vitals and I&O: Vital Signs Temperature 36.7 C 07/26/20 15:20 Temperature Source Tympanic 07/26/20 15:20 Pulse 55 L 07/26/20 15:20 Pulse Rhythm Regular 07/26/20 14:42 Respiratory Rate 18 07/26/20 15:20 Respiratory Effort Non-Labored 07/26/20 14:42 Respiratory Depth Normal 07/26/20 14:42 Respiratory Pattern Normal 07/26/20 14:42 Blood Pressure 173/99 H 07/26/20 15:20 Pulse Oximetry 98 07/26/20 15:20 Respiratory End-tidal CO2 31 07/26/20 14:00 Oxygen Delivery Method Room Air 07/26/20 15:20 Oxygen Flow Rate 0 07/26/20 15:20 Pain Level 0 07/26/20 16:29 Intake & Output 07/25/20 07/26/20 07/26/20 23:59 11:59 23:59 Intake Total 870 / 870 Balance 870 / 870 Weight 72.1 kg Intake: IV 870 / 870 Other: Emesis Description None PFSH Medical History Arthritis of left knee 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 Per pt. all is resolved. Hypercholesterolemia (04/06/13) Left bundle branch block echo and MPI normal Normal colonoscopy Systolic murmur F/U with Dr. Castelan, regarding murmur. No issues at this time. Vitamin D deficiency Surgical History Hx of tonsillectomy as a child Hx of wisdom tooth extraction Status post right knee replacement (05/11/20) Family History Mother , 65 Essential hypertension Stroke Father , 75 Colon cancer Brother Essential hypertension Stroke Maternal Grandfather Essential hypertension Heart disease Paternal Grandfather No problems noted. Maternal Grandmother , 83 Diabetes Paternal Grandmother Heart disease Son , 7 days Ornithine transcarbamoylase deficiency Down syndrome Son , 5 days Ornithine transcarbamoylase deficiency Daughter Ornithine transcarbamoylase deficiency Daughter Ornithine transcarbamoylase deficiency Thyroid cancer Social History Smoking/Tobacco Use Status: Never Alcohol Intake: current Alcohol Intake frequency: a few times a week Alcohol type: wine Drug use: Rarely Substance use type: marijuana Caregiver/Support person: No Household members: spouse, family and other Details: daughter,son-in-law and 2 grandchildren Communication Needs: Hard of Hearing Do you need help understanding health information?: Rarely Pets and animals: Yes Pets and animals: cat(s) and dog(s) Do you think of yourself as: straight/heterosexual Current gender identity: female What is your relationship status?: How often do you talk on the phone with friends or family?: once per week How often do you get together with friends or relatives?: twice per week How often do you attend scientology or zoroastrian services?: decline to answer Do you belong to any clubs or organized social groups?: yes Panel score (0-1 are the most socially isolated patients): 3 What type of physical activity do you participate in: walking, weight lifting and other Details: hiking with poles Frequency: 3-4 times per week Ana/Uatsdin: None Special ana needs: No Seatbelt use: always Helmet use: Yes Helmet use: always Drive intox or ride w/intox company driver: No Do you feel safe in your relationship?: Yes
--- NOTE | 2020-07-26 17:30 | PT.INIE ---
Date of service: 07/29/20 Time of Service: 15:58 PT Notes Visit Reasons: Left TKA Physical Therapy Inpatient Initial Evaluation Date: 07/26/2020 Referring Doctor: BRIAN Kramer PT Orders: PT CONSULT: S/P Ortho surgery Precautions: Fall. Standard. WBAT on L LE. Patient Profile/Admitting Diagnosis: Claire is a 69-year-old female with primary unilateral knee osteoarthritis and is S/P L knee total arthroplasty. 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 Per pt. all is resolved. Hypercholesterolemia (04/06/13) Left bundle branch block echo and MPI normal Normal colonoscopy Systolic murmur F/U with Dr. Castelan, regarding murmur. No issues at this time. Vitamin D deficiency Surgical History Hx of tonsillectomy as a child Hx of wisdom tooth extraction Status post right knee replacement (05/11/20) Social History/Home Situation: Lives in a private home with 2 steps to enter with B rails. I with all ADLs prior to surgery. Equipment Owned/DME: [employer] Subjective: States that this is not her first rodeo as she had her other knee done previously. She reports 3-4/10 pain in the L knee with weigh bearing. Hopes to go home today as soon as she is medically cleared. Objective: General Observation: Supine in bed. Agreeable to PT consult. Denies dizziness, headache, and chest pain throughout PT session. Mental Status: Alert and oriented x 4 Pain: 3-4/10 in L knee with WB ROM: Right Upper Extremity: Shoulder Flexion WFL. Shoulder abduction WFL. Elbow flexion WFL. Wrist flexion WFL. Opening and closing of hand WFL. Left Upper Extremity: Shoulder Flexion WFL. Shoulder abduction WFL. Elbow flexion WFL. Wrist flexion WFL. Opening and closing of hand WFL. Right Lower Extremity: Hip flexion WFL. Hip abduction WFL. Knee flexion WFL. Ankle dorsiflexion WFL. Ankle plantarflexion WFL. Left Lower Extremity: Hip flexion WFL. Hip abduction WFL. Knee flexion 20-100 degrees. Knee extension -20 degrees. Ankle dorsiflexion WFL. Ankle plantarflexion WFL. Strength: Right Upper Extremity: Shoulder flexors 5/5. Shoulder abductors 5/5. Elbow flexors 5/5. Elbow extensors 5/5. Spray Blender strong. Left Upper Extremity: Shoulder flexors 5/5. Shoulder abductors 5/5. Elbow flexors 5/5. Elbow extensors 5/5. Spray Blender strong. Right Lower Extremity: Hip flexors 5/5. Hip abductors 5/5. Knee flexors 5/5. Knee extensors 5/5. Ankle dorsiflexors 5/5. Ankle plantarflexors 5/5. Left Lower Extremity:Hip flexors 4/5. Hip abductors 4/5. Knee flexors 3-/5. Knee extensors 3-/5. Ankle dorsiflexors 5/5. Ankle plantarflexors 5/5. Sensation: Intact as to pain and pressure on bilateral lower extremities. Bed Mobility/Transfers: Rolling SBA Supine to sit CGA Sit to supine CGA Sit to stand CGA Stand to sit CGA Bed to chair CGA Chair to bed CGA Gait: 150 feet + 150 feet using the FWW with CGA with pain report of 3-4/10. Decreased jeffrey. Step to gait pattern. UP and down six 4-inch steps and four 6-inch steps while holding onto B rails with step-to gait pattern. Balance: Static Sitting: Normal Dynamic Sitting: Normal Static Standing: Fair Dynamic Standing: Fair Special Tests: Mobility Limitations Standardized Measure [facility] 6 clicks Basic Mobility Inpatient Short Form: Raw Score: 18 CMS Score: 47% deficit Informed Consent/Education: Patient instructed in purpose of PT consult and plan of care. Assessment: Claire requires the use of a front wheel walker to maximize independence and reduce fall risk for all mobility ADL performance. She will have the help of family and friends as she recovers home. Patient presents with clinical signs and symptoms consistent with current/admitting diagnoses that have resulted to mobility limitations, gait instability, generalized weakness, and impairment of motor control as demonstrated by the following impairment level findings: 1. Decreased strength to left knee major muscle groups 2. Impaired standing balance 3. Impaired activity tolerance 4. Limitation of joint range of motion in left knee Impairments are contributing to the following functional limitations: 1. Dependent bed mobility skills 2. Increased dependence with transfers 3. Inability to safely ambulate without assistive device and physical assistance 4. Increase completion time for mobility ADL performance 5. Increased fall risk 6. Inability to negotiate steps alone safely Patient is assessed as a 66277 moderate complexity based on the following: History: 69-year-old female with impairment level findings, functional limitations, and past medical history as indicated above Examination: Demonstrable impairment in strength, balance, and mobility level with underlying impairments and functional limitations as documented above Presentation:Evolving Decision Makin moderate complexity Goals: N/A. PT treatment and 1 treatment session only. Plan of Care/Treatment Plan: N/A. PT treatment and 1 treatment session only. DISCHARGE RECOMMENDATIONS: Home when medically cleared by orthopedic MD. May benefit from OP PT services to regain independent prior level of function. TREATMENT CODE/TIME: 28580 and 94927. Thank you for the opportunity to participate in the care of this patient. Avelina Garcia PT, DPT, CLT [facility] [place], [place]
--- NOTE | 2020-07-27 06:07 | ROE_ITS ---
Date of service: 07/26/20 Time of Service: 13:15 Operative Note Operative Note DATE OF PROCEDURE: 07/26/20 PRE-OP DIAGNOSIS: Left Knee Osteoarthritis POST-OP DIAGNOSIS: same PROCEDURE: Left Total Knee Replacement SURGEON: Alex Cota ELECTRICAL TECH/PROJECT MANAGER: Ingris Lazo ANESTHESIA: regional and spinal ESTIMATED BLOOD LOSS: 200 PATHOLOGY: none sent TOURNIQUET TIME: 0 COMPLICATIONS: None Patient was transported to: PACU Patient's condition: stable Implants: 1. Depuy Attune Cementless Cruciate Retaining Femoral Component, Size 5 2. Depuy Attune Cementless Rotating Platform Tibial Component, Size 4 3. Depuy Attune 5 x 6 mm CR/RP Poly 4. Depuy Attune Patellar Component, Size 35 mm Indications: I have seen Claire in clinic for symptoms of knee arthritis, confirmed with radiographic findings. Claire has exhausted nonoperative methods and was having significant limitations in daily function and desired better function and less pain. She had a successful knee replacement on the right side. I discussed the technical details of a knee replacement. I explained the risks of the procedure to include, but not limited to, bleeding, infection, pain, stiffness, fracture, damage to nerves and vessels, damage to muscles and tendons, loosening, need for repeat procedure, blood clot and cardiopulmonary demise. Despite these risks, [NAME] elected to proceed. Findings: There was significant signs of arthritis throughout the knee involving all 3 compartments including significant deformity of the patella. Procedure Description: Claire was greeted in the preoperative holding area where the correct side was identified and marked. The consent was reviewed with the patient and signed. The history and physical was updated. All questions were answered. Preoperative medications were administered: Acetaminophen 1000mg, Celebrex 400mg, and Gabapentin 300mg. An adductor canal block was then administered by the anesthesia team in the PACU. Claire was taken back to the operating room. A spinal anesthestic was then administered. The patient was placed into the supine position on the operating room table. A nonsterile tourniquet was placed high onto the leg but only used for cementing. Posts were placed for positioning during the procedure. All bony prominences were well padded. Prophylactic antibiotics in the form of Cefazolin were administered. 1g of Tranxemic Acid was given intravenously within 30 minutes of incision. The left leg was then prepped with Chloraprep and draped in a standard fashion with impervious stockinette. A second prep with Chloraprep was performed prior to application of Iodine impregnated skin protection. A timeout to confirm correct identity, side and site, procedure, allergies, anesthesia, and medical concerns was performed. With the knee in some flexion, a midline incision was made overlying the knee. Full thickness skin flaps were raised once the extensor mechanism was encountered. These were raised medially and laterally. Any bleeding was controlled with electrocautery. Once the extensor mechanism was fully exposed, a medial parapatellar arthrotomy was performed in a flexed position. All bleeding from the arthrotomy and the geniculate arteries was coagulated. A medial subperiosteal peel was performed with electrocautery to the midcoronal plane. The fat pad was removed while keeping the patellar tendon protected. The anterior distal femur synovium was removed for later visualization. The ACL and PCL were resected and the anterior horn of the lateral meniscus was transected. The knee was then flexed with the patella everted. Large osteophytes from the tibia were removed. Large osteophytes from the femur were removed. Significant for medial patella was appreciated and extra bone and osteophytes were resected down to the base of the patella. Using a step drill, and based on preoperative templating, the femoral canal was entered. This was done with a step drill without any difficulty. The intramedullary distal femoral cut guide was inserted, set to a 5 degree valgus cut and 9mm cut thickness. There was some hypoplasia of the lateral femoral condyle and any remnant cartilage of the medial femoral condyle was removed for appropriate thickness. The distal femoral cut guide was then held in position and pinned. With the soft tissues protected, the distal cut was performed. Th is was passed over a few times to ensure a planar cut. I then turned attention to the tibia. The extramedullary guide was placed onto the leg. The distal aspect was slid medial to adjust for position of center of ankle and stay in line with shaft of the tibia. Approximately 3-5 degrees of posterior slope was kept in the proximal cutting guide. The center of the guide was aligned with the PCL. The stylus was used to assess cut thickness. The medial side, most involved side, was set for a 5mm cut which corresponded 8 mm laterally. This was then held in position and pinned into place with 2 additional pins and a cross pin for stability. The medial and lateral collateral ligaments were protected and the cut was performed. With this completed, it was assessed and noted to be of appropriate dimensions. The guide was removed. A spacer block was inserted and the knee was brought into extension. The 6mm spacer block provided full extension, without hyperextension and with stability of both the medial and lateral collateral ligaments was assessed. The pins from the femur and the tibia were then removed. The distal femur was then sized. The anterior stylus was placed onto the lateral ridge of the anterior femur. This indicated a size 5 femur. The external rotation of the guide was adjusted to 3 degrees to match the epicondylar axis, perpendicular to [place]a?s line. The 4-in-1 cutting guide was the placed. The posterior medial femur cut was evaluated and appeared of good thickness. The spacer block was inserted underneath the cutting guide and stability was confirmed in 90 degrees of flexion. An micheal wing was used to confirm appropriate position of the anterior cut to avoid notching. This cutting guide was ensured to be flush on the cut surface and then pinned into place with headed pins. While protecting the soft tissues, quad tendon, and collateral ligaments, the anterior and posterior cuts were performed with a saw. The central two pins were removed and the posterior and anterior chamfers were cut next. The notch-cutting guide was placed. This was pinned to lateralize the femoral component as much as possible while keeping it flush on the cut surface. This was then pinned into position. A reciprocating saw was used to make the notch cut. A rasp smoothed the cut surfaces. The medial and lateral menisci were removed. A trial femoral component was then inserted, impacted down to the cut surfaces, and the lug holes were drilled. A provisional trial tibial component was placed and the knee was brought through range of motion. There was noted to be excellent extension and flexion. There was no significant instability. The patella was tracking without thumbs. A size 6mm polyethylene component provided the best range of motion and stability with less than 2mm gapping with medial and lateral stress and full extension without significant hyperextension. The tibial cut surface was fully exposed. The tibia was then sized as a 4. The tibia had been previously marked during trialing to correspond to the center of the tibial component to help with rotation. The trial was aligned to this randall, approximately rotated to the medial 1/3rd of the tibial tubercle. The trial was pinned into place. The tibia was prepared with a reamer and a keel punch and lug holes. The knee was then brought into extension and the patella was measured as 25mm. Using the patellar clamp and cut guide, this was resected to a flat surface with at least 13mm of thickness remaining. The size 35 patella fit the best. This was oriented and then clamped into position. The lugs were drilled. The trial components were removed. The final components were opened on the back table. The periosteal and capsular tissues, especially posteriorly, around the knee were then systematically injected with a periarticular cocktail consisting of 50cc 0.25% Marcaine, 30mg Ketorolac, 20cc of Exparal and 50cc of injectable saline. The knee was thoroughly irrigated with a pulse lavage and dried. Irrisept was also used to irrigate the tissues. On the back table, with the implants opened, the cement was mixed. One batche of high viscosity cement were prepared with vacuum assistance. After the cement was ready a small amount was placed on the cut surface of the patella and the patellar button was clamped into position and held. During this process attention was turned to the gutters of the knee and for all interfaces for any excess cement. While the cement was hardening, the cementless knee components were placed. Starting with the tibial component, the tibia was subluxed anteriorly and the lug holes of the component were lined up. The tibia was then impacted with an impactor and mallet until the tibial component was in contact with the tibia. The final polyethylene component was inserted. Then, the femoral component was inserted. The lug holes were aligned and the component was impacted into position. The knee was irrigated with Irrisept chlorhexadine solution. This was allowed to sit in the knee for 3 minutes. After the cement had finally cured, approximately 15min, the clamp was removed from the patella and the knee was taken through range of motion. The patella was tracking with a no-thumbs technique. The capsule was then reapproximated with a No. 1 Vicryl at multiple locations. The capsule was finally closed with a No. 2 Stratafix, barbed suture. The tourniquet was then released and the arthrotomy appeared watertight without significant bleeding. The second dosing of 1g TXA was started. Deep tissues were then reapproximated with 0 Vicryl and 2-0 Vicryl. The skin was closed with a running 3-0 Monocryl in a subcuticular fashion. This was reinforced with skin glue. A Mepilex silver dressing was applied along with a [id number]-[id number] PASCUAL wrap. A CryoCuff was applied. Claire was transferred to the hospital bed without difficulty an suffering no apparent complication. Claire has a good prognosis. Physical therapy will start today and without restrictions, weight-bearing as tolerated. Aspirin 81mg BID will be used for DVT prophylaxis.
== END 2020-07-26 19:04 | disposition home or self-care (01) ==
LOC: PDS 13:33 → MS 13:34
PROVIDERS: Admitting Provider Student in an Organized Health Care Education/Training Program; PCP Family Medicine; Visit Provider Student in an Organized Health Care Education/Training Program
PROC: 0SRD0J9 Replacement of Left Knee Joint with Synthetic Substitute, Cemented, Open Approach (ICD-10-PCS; CPT 27447; principal; 2020-07-26 12:00)
DX: M17.12 Unilateral primary osteoarthritis, left knee (principal); M25.562 Pain in left knee; Z96.652 Presence of left artificial knee joint; G89.18 Other acute postprocedural pain; Z96.651 Presence of right artificial knee joint; I08.3 Combined rheumatic disorders of mitral, aortic and tricuspid valves; I10 Essential (primary) hypertension
CPT/HCPCS: 27447; C1776; 76942; 97162; NC; G0378; J0690; J1100; J1885; J2001; J2405

== ENCOUNTER 2020-07-28 17:36 | Outpatient (CLI) | payer MEDICARE, BC, SELFPAY ==
--- NOTE | 2020-07-28 08:00 | DI.US_ITS ---
EXAM: US LOWER EXTREMITY VENOUS LT CLINICAL HISTORY: SWELLING, PAIN, TIGHTNESS, WARMTH, ? DVT. TECHNIQUE: Lower extremity venous ultrasound performed using grayscale, color-flow, and spectral Dop pler analysis. COMPARISON: No exams were available for comparison FINDINGS: The common femoral, femoral and popliteal veins demonstrate normal compressibility, augmentation, and color Doppler. The posterior tibial veins are patent. The saphenous vein appears free of thrombus. There is a complex bilobed Leavitt's cyst versus hematoma in the popliteal fossa and upper calf. The u pper portion measures 5.3 x 0.8 x 2.8 cm. The more inferior portion measures 5.3 cm in length by 1.3 x 2.6 in AP and transverse dimensions. IMPRESSION: No evidence of DVT. Probable bilobed complex Leavitt's cyst versus hematoma. DATA REPOSITORY:
== END 2020-07-28 17:56 ==
PROVIDERS: PCP Family Medicine; Visit Provider Student in an Organized Health Care Education/Training Program
DX: M79.605 Pain in left leg (principal); M79.89 Other specified soft tissue disorders
CPT/HCPCS: 93971

== ENCOUNTER 2020-08-08 15:00 | Outpatient (CLI) | payer MEDICARE, BC, SELFPAY ==
--- NOTE | 2020-08-08 15:00 | DI.RAD_ITS ---
EXAM: XR STANDING ALIGNMENT and XR knee LT one view CLINICAL HISTORY: 1ST POST OP L TKA. TECHNIQUE: 2D digital imaging was performed. COMPARISON: CR XR STANDING ALIGNMENT from 05/27/2020 FINDINGS: Tets-lc-[id number] degenerative changes are seen at the hips bilaterally. There is an old right total knee replacement which appears stable. Since the prior examination the patient has undergone a left total knee replacement. The orthopedic hardware appears in good position. The ankles are well maint ained. No significant leg length discrepancy is noted. IMPRESSION: Stable left total knee replacement. DATA REPOSITORY: RADIATION DOSE DELIVERED:
== END 2020-08-08 15:20 ==
PROVIDERS: PCP Family Medicine; Referring Provider Family Medicine; Visit Provider Student in an Organized Health Care Education/Training Program
DX: Z96.652 Presence of left artificial knee joint (principal); M16.0 Bilateral primary osteoarthritis of hip; Z47.1 Aftercare following joint replacement surgery; I10 Essential (primary) hypertension; S80.12XA Contusion of left lower leg, initial encounter; X58.XXXA Exposure to other specified factors, initial encounter
CPT/HCPCS: 73560; 77073

== ENCOUNTER → 2020-09-05 10:27 | Outpatient (BNVA) | payer MEDICARE, BC, SELFPAY | PROVIDERS: PCP Family Medicine; Referring Provider Family Medicine; Visit Provider Student in an Organized Health Care Education/Training Program | DX: Z96.652 Presence of left artificial knee joint (principal); Z47.1 Aftercare following joint replacement surgery; Z96.651 Presence of right artificial knee joint ==

== ENCOUNTER 2020-09-06 00:59 | Outpatient (CLI) | payer MEDICARE, BC, SELFPAY ==
--- NOTE | 2020-09-06 10:50 | DI.MAMMO_ITS ---
EXAM: MG MAMMO SCREENING CLINICAL HISTORY: screening,Z12.39 TECHNIQUE: Bilateral full field digital CC and MLO mammographic images were obtained with 3D tomosyn thesis and utilizing computer aided detection (CAD). COMPARISON: Available for comparison. FINDINGS: Masses/Architectural Distortion: None seen. Microcalcifications: No suspicious pleomorphic-type are seen. Skin Thickening/Nipple Retraction: None. IMPRESSION: 1. No significant interval change with no specific features of malignancy noted. 2. Unless there is more urgent need, screening mammography is recommended, as per [employer] guidelines. BI-RADS Category 1 - Negative Breast Density - Category B - Scattered areas of fibroglandular density A negative radiographic report should not delay biopsy if a dominant or clinically suspicious mass is present. Up to ten percent of cancers are not identified on mammography. A negative report may reinforce clinical impression. Adenosis and dense breasts may obscure an underlying neoplasm. False positive reports average 6 to 10%. Patient will receive a letter notifying them of these results.
== END 2020-09-06 01:19 ==
PROVIDERS: PCP Family Medicine; Visit Provider Family Medicine
DX: Z12.31 Encounter for screening mammogram for malignant neoplasm of breast (principal)
CPT/HCPCS: 77063; 77067

== ENCOUNTER → 2020-10-31 10:23 | Outpatient (BNVA) | payer MEDICARE, BC, SELFPAY | PROVIDERS: PCP Family Medicine; Referring Provider Family Medicine; Visit Provider Student in an Organized Health Care Education/Training Program | DX: Z47.1 Aftercare following joint replacement surgery; Z96.653 Presence of artificial knee joint, bilateral | CPT/HCPCS: 99212 ==

== ENCOUNTER 2021-04-21 08:14 | Outpatient (CLI) | payer MEDICARE, BC, SELFPAY ==
[2021-04-21 12:50] LABS: ALT 29 U/L (14-59); AST 22 U/L (15-37); Albumin 3.8 g/dL (3.4-5.0); Alkaline Phosphatase 77 U/L (46-116); Anion Gap 7.5 mmol/L (3-11); BUN 14 mg/dL (7-18); Bilirubin, Total 0.6 mg/dL (0.2-1.0); CO2 28.5 mmol/L (21.0-32.0); CREATININE 0.6 mg/dL (0.55-1.02); Calcium 8.9 mg/dL (8.5-10.1); Chloride 102 mmol/L (98-107); Glucose 98 mg/dL (74-106); Potassium 4.1 mmol/L (3.5-5.1); Sodium 138 mmol/L (136-145); Total Protein 7.2 g/dL (6.4-8.2)
== END 2021-04-21 08:15 | disposition home or self-care (01) ==
LOC: LOS 08:18
PROVIDERS: PCP Family Medicine; Visit Provider Family Medicine
DX: E78.00 Pure hypercholesterolemia, unspecified (principal); I10 Essential (primary) hypertension
CPT/HCPCS: 36415; 80053

== ENCOUNTER 2021-07-10 10:51 | Outpatient (CLI) | payer MEDICARE, BC, SELFPAY ==
--- NOTE | 2021-07-10 10:30 | DI.RAD_ITS ---
Exam(s) XR KNEE RT 2V AP,LAT EXAM: XR KNEE RT 2V AP,LAT CLINICAL HISTORY: ANNUAL F/U R TKA. TECHNIQUE: 2D digital imaging was performed. COMPARISON: CR XR KNEE RT 2V AP,LAT from 08/14/2019 CR XR KNEE RT 2V AP,LAT from 08/14/2019 CR XR STANDING ALIGNMENT from 05/27/2020 CR XR KNEE RT 1V from 05/27/2020 CR XR STANDING ALIGNMENT from 05/27/2020 CR XR KNEE RT 1V from 05/27/2020 CR XR KNEE LT 1V from 08/08/2020 CR XR KNEE LT 1V from 08/08/2020 CR XR KNEE LT 2V AP,LAT from 07/10/2021 FINDINGS: BONES: No acute fracture is present. No bony destructive lesion is seen. A total knee prosthesis is again noted. JOINTS: The knee is normally aligned. A moderate-sized joint effusion is seen. SOFT TISSUE: Normal. IMPRESSION: No change in knee prosthesis. DATA REPOSITORY: RADIATION DOSE DELIVERED:
--- NOTE | 2021-07-10 10:30 | DI.RAD_ITS ---
Exam(s) XR KNEE LT 2V AP,LAT EXAM: XR KNEE LT 2V AP,LAT CLINICAL HISTORY: ANNUAL F/U L TKA. TECHNIQUE: 2D digital imaging was performed. COMPARISON: CR XR KNEE LT 1V from 08/08/2020 FINDINGS: BONES: No acute fracture is present. No bony destructive lesion is seen. There is a total knee prost hesis, unchanged. JOINTS: The knee is normally aligned. A small joint effusion is seen. SOFT TISSUE: Anterior soft tissue swelling. IMPRESSION: Stable appearance of total knee prosthesis. DATA REPOSITORY: RADIATION DOSE DELIVERED:
== END 2021-07-10 10:52 | disposition home or self-care (01) ==
LOC: DIORS 10:51
PROVIDERS: PCP Family Medicine; Referring Provider Family Medicine; Visit Provider Student in an Organized Health Care Education/Training Program
DX: Z96.651 Presence of right artificial knee joint (principal); Z47.1 Aftercare following joint replacement surgery; Z96.652 Presence of left artificial knee joint
CPT/HCPCS: 99213; 73560

== ENCOUNTER → 2021-11-09 10:49 | Outpatient (BNVA) | payer MEDICARE, BC, SELFPAY | PROVIDERS: PCP Family Medicine; Referring Provider Family Medicine; Visit Provider Physical Therapy Assistant | DX: Z12.11 Encounter for screening for malignant neoplasm of colon (principal); Z80.0 Family history of malignant neoplasm of digestive organs ==

== ENCOUNTER 2021-11-15 01:55 | Outpatient (CLI) | payer MEDICARE, BC, SELFPAY ==
[2021-11-15 11:41] LABS: Source Nasal/Nares
[2021-11-15 16:14] LABS: COVID-19 PCR Negative (Negative)
== END 2021-11-15 01:56 | disposition home or self-care (01) ==
LOC: LBO 01:56
PROVIDERS: PCP Family Medicine; Visit Provider Surgery
DX: Z20.822 Contact with and (suspected) exposure to COVID-19 (principal)
CPT/HCPCS: 87635

== ENCOUNTER 2021-11-17 08:10 | Day surgery (SDC) | payer MEDICARE, BC, SELFPAY ==
--- NOTE | 2021-11-16 14:58 | W.COLOREPORT ---
Colonoscopy Report Date of procedure: 11/17/21 Pre-op diagnosis general: family hx of CRC Post-op diagnosis procedure note: other (polyps x2) Surgeon: Jordana Mtz Anesthesia Type: General:No Airway Estimated blood loss (mL): 1 Pathology: other Complications: None Disposition: same day Prep: Miralax/Dulcolax Retraction Time: 9 Procedure Description: After informed consent was obtained the patient was taken to the procedure room and placed in a left decubitous position. Monitors were applied and a time out was done. The patients name, date of , procedure, allergies to medications and metal in their body was reviewed. The patient was then sedated. Once sedated and comfortable a rectal exam was done. External exam was normal. Internal exam revealed a normal sphincter tone and no palpable masses. The scope was then introduced and retrofelexed. No internal hemorrhoids were identified. The scope was then advanced to the cecum w/out difficulty. The TI and appendiceal orifice were identified. The prep was good. The scope was then slowly retracted over 9 minutes back into the rectum. She had 2 polyps at 80 cm. These were adenomatous under NBI. one was a 5 mm flat polyp. The other was a .75 cm flat polyp, that was removed and 2 bites. Each was removed with a cold forcep. All specimen is retrieved and no bleeding is noted. There are no diverticula or AVMs seen. the scope was removed and the patient was woken up and taken back to Same day surgery in stable condition. The patient tolerated the procedure well and there were no immediate complications. Follow up: The patient should follow up in 5 years, and she is still healthy for anesthesia, unless they develop changes in bowel habits or other new gastrointestinal complaints.
--- NOTE | 2021-11-16 18:27 | PDOC.DSDIS_ITS ---
Discharge Plan Disposition Patient Disposition: HOME Condition: Good Discharge Details Reason For Visit: colon scope Attending Provider: Jordana Mtz Primary Care Provider: Nicci Castelan Home Meds and New Rx's Prescriptions: No Action Shingrix (PF) 50 mcg/0.5 mL suspension for reconstitution 0.5 ml IM ONCE Qty: 1 RF: 1 potassium chloride 20 mEq tablet extended release 20 meq PO DAILY Qty: 90 RF: 5 hydrochlorothiazide 25 mg tablet 25 mg PO DAILY Qty: 90 RF: 5 losartan 100 mg tablet 100 mg PO DAILY Qty: 90 RF: 5 atorvastatin 40 mg tablet 40 mg PO HS Qty: 90 RF: 5 aspirin [Adult Aspirin Regimen] 81 mg tablet,delayed release (DR/EC) 81 mg PO DAILY RF: 0 magnesium 250 MG tablet 500 mg PO HS RF: 0 cholecalciferol (vitamin D3) 1,000 UNIT capsule 1,000 unit PO HS RF: 0 ascorbic acid (vitamin C) [Vitamin C] 250 MG tablet 500 mg PO DAILY PRNRF: 0 vitamin B complex 1 EACH tablet 1 ea PO DAILY RF: 0 Co Q-10 (with Vit E) 1 EACH capsule 1 ea PO DAILY RF: 0 acetaminophen [Tylenol Extra Strength] 500 mg tablet 500 mg PO Q6H PRNQty: 90 RF: 0 amlodipine 5 mg tablet 5 mg PO HS RF: 0 Discharge Instructions Additional Instructions: DSU Colonoscopy Post- Op Instructions Instructions for Everyone who is given Anesthesia: For your safety, please do the following for the next twenty-four (24) hours: *Do Not operate a motor vehicle (car, truck, motorcycle, etc.) *Do Not drink alcoholic beverages or use any recreational drugs for the first 24 hours or while taking pain medications. The medications in your body may have a reaction that can be dangerous. *Do Not make any important decisions or sign any important papers. Findings:x2 polyps Follow up: My office will send a letter with the results of the polyps, and in 2 to 3 weeks time. It is recommended that she have another colonoscopy in 5 years time to follow-up. 1. No lifting over 20 pounds or strenuous activity for the first 24 hours after your procedure. After 24 hours there are no restrictions on your activity but you may feel fatigued for a few days. 2. After you arrive home you may have a light meal and return to your normal diet as you can tolerate it without feeling sick to your stomach. 3. You may have a bloated, gaseous feeling in your belly (abdomen) after a colonoscopy. Passing gas and belching will help. Walking or lying down on your left side with your knees flexed may relieve the discomfort. Call the office at [phone] (Office) or [phone] (Hospital) right away if you notice any of the following: a.Vomiting of blood or ?coffee ground stools?. b.Rectal bleeding 1Tbsp, blood clots or continuous bleeding. c.Severe belly (abdominal) pain. d.A hard distended belly (abdomen) and an inability to pass gas. 4. Please don?t expect to have a normal BM (bowel movement) for 2-3 days after your procedure. 5. If there are questions regarding the findings of your procedure, please contact your doctor 6. If you are unable to contact your doctor with a problem, contact the hospital at [phone]. 7. Continue all your regular medications unless directed otherwise. I understand the above instructions and have no questions. Signature of Patient or Adult Escort Name of Responsible Adult Escort Signature of Nurse Date/Time Activity:: see above Diet:: see above Discharge Orders Discharge Orders: Discharge Order (Routine); Ordered 11/16/21 Ordered By: Jordana Mtz DS: Diagnosis Discharge Diagnosis (1) Family history of colon cancer: Status: Resolved (2) Adenomatous polyp of ascending colon: Status: Acute
[2021-11-17 08:35] VITALS: BP 117/84; PULSE 88; RESP 16; TEMP 36.7; O2SAT 98
--- NOTE | 2021-11-17 08:44 | W.ANESPRE ---
General Info Date of Service Date Performed: 11/17/21 Height: 5 ft 7 in Weight: 75.4 kg Body Mass Index (BMI): 26.0 Surgical Procedure: Operation Date: 11/17/21 09:05 Proposed Procedures Side Surgeon lennie Mtz, DO Meds Allergies and Home Medications Allergies Allergy/AdvReac Type Severity Reaction Status Date / Time Sulfa (Sulfonamide Allergy Severe Swelling/Hi Verified 11/17/21 08:31 Antibiotics) ves soy AdvReac Intermediate Bloating Verified 11/17/21 08:31 Home Medication Medication Instructions Recorded cholecalciferol (vitamin D3) 1,000 unit PO HS 01/06/13 magnesium 500 mg PO HS 01/06/13 ascorbic acid (vitamin C) [Vitamin 500 mg PO DAILY PRN 11/17/13 C] vitamin B complex 1 ea PO DAILY 12/13/14 Co Q-10 (with Vit E) 1 ea PO DAILY 07/05/15 acetaminophen [Tylenol Extra 500 mg PO Q6H PRN #90 tab 07/26/20 Strength] varicella-zoster glycoE [id number] 0.5 ml IM ONCE #1 ea 04/25/21 adj(PF) 50 mcg/0.5 mL IM susp, kit atorvastatin 40 mg tablet 40 mg PO HS #90 tab 10/23/21 hydrochlorothiazide 25 mg tablet 25 mg PO DAILY #90 tab-cap 10/23/21 losartan 100 mg tablet 100 mg PO DAILY #90 tab-cap 10/23/21 potassium chloride 20 mEq 20 meq PO DAILY #90 tab 10/23/21 tablet,extended release aspirin 81 mg tablet,delayed 81 mg PO DAILY 11/09/21 release amlodipine 5 mg PO HS 11/15/21 Current Visit Medications: Current Medications Generic Name Dose Route Start Last Admin Trade Name Freq PRN Reason Stop Dose Admin Hyoscyamine Sulfate 0.125 mg 11/16/21 14:57 Hyoscyamine 0.125 Mg Sl/Oral/Chew SL DIRECTED PRN Ringer's Solution 1,000 mls @ 80 mls/hr 11/17/21 06:00 IV 11/27/21 23:59 INFUSION JARVIS IV Miscellaneous Supplies 1 each 11/17/21 06:00 Iv Access IV 11/27/21 23:59 DIRECTED JARVIS Ondansetron HCl 4 mg 11/16/21 14:57 Ondansetron 4 Mg/2 Ml Vial IVP Q4H PRN PRN Nausea / Vomiting Sodium Chloride 0 ml 11/17/21 06:00 Normal Saline Flush 10 Ml Syr IV 11/27/21 23:59 PRN PRN Sodium Chloride 0 ml 11/17/21 06:00 Normal Saline 10 Ml Vial IJ 11/27/21 23:59 DIRECTED PRN Sterile Water 0 ml 11/17/21 06:00 Water,Injection,Sterile 10 Ml Vial IJ 11/27/21 23:59 DIRECTED PRN PFSH Active Problems Active Problems: Problem Status Onset Code Screening for colon cancer Z12.11 Decreased hearing of both ears 07/05/15 H91.93 Left bundle branch block I44.7 Family history of colon cancer Z80.0 Medical History Medical History Chondromalacia of patella Essential hypertension Hx of head injury 2009 with major blood loss, with hospitalization and transfusion. Per pt. all is resolved. Hypercholesterolemia (04/06/13) Normal colonoscopy Systolic murmur F/U with Dr. Castelan, regarding murmur. No issues at this time. Tear of supraspinatus tendon (10/17/15) Varicose veins of lower extremity Vitamin D deficiency Medical History Comments:: Pt. requesting scopolamine patch while intra-op r/t to PONV. States has worked like a dream in the past Surgical History Surgical History Hx of tonsillectomy as a child Hx of wisdom tooth extraction Status post right knee replacement (05/11/20) Status post total left knee replacement (07/26/20) Tobacco Smoking/Tobacco Use Status: Never Passive smoking exposure: Yes Second hand exposure: Yes Alcohol Alcohol Intake: current Alcohol intake frequency: a few times a week Alcohol type: wine Substance Use Substance use: Rarely Substance use type: marijuana Vital Signs and Lab Results Vital Signs Most Recent Vital Signs in EMR: Most Recent Vital Signs Temp Pulse Resp BP Pulse Ox 36.7 C 88 16 117/84 98 11/17/21 08:35 11/17/21 08:35 11/17/21 08:35 11/17/21 08:35 11/17/21 08:35 Lab Results Blood Type / Crossmatch: No Data to Display Complete Blood Count: No Data to Display Complete Metabolic Panel: No Data to Display Liver Function Panel: No Data to Display Coagulation Panel: No Data to Display Cardiac Panel: No Data to Display Arterial Blood Gas: No Data to Display Venous Blood Gas: No Data to Display Pancreas Panel: No Data to Display Thyroid Panel: No Data to Display Infectious Disease: Coronavirus (COVID-19)(PCR) Negative (Negative) 11/15/21 10:21 11/15/21 Coronavirus 2019 Source Nasal/Nares 11/15/21 10:21 11/15/21 Blood Cultures: No Data to Display Toxicology Panel: No Data to Display Imaging and Studies Imaging and Studies Study information below may be from another EMR and interpreted by another provider. Please see original notes in EMR for more complete details. Echocardiogram Summary: 2020: LVEF 55-60%, borderline LVH. mild AR, mild TR. RVSP 26-29 mmhg. Anesthesia Assessment and Plan Anesthesia History Personal History: PONV Family History: No Family History of Anesthesia Complications Exercise Tolerance Exercise Tolerance: Metabolic Equivalents>4 Cardiac & Pulmonary Exam Cardiac Exam: Normal S1/S2 Heart Sounds Pulmonary Exam: Clear Bilateral Breath Sounds Implantable Cardiac Device Does patient have a Pacemaker or an ICD?: No Airway Exam Known Difficult Airway: No Mallampati Class: 2 Mouth Opening: Narrow (< 3cm) Thyromental Distance: Less than 3 cm Neck Range of Motion: Full ROM Neck Circumference: Normal Teeth Condition: Normal Dentition ASA Classification ASA Score: ASA 2 Emergency Case?: No NPO Status NPO Status: NPO Clears >2 hours, Solids >8 hours Anesthesia Plan Resuscitation Status: Full Code Anesthesia Technique: General Anesthesia Airway Planned: Natural Airway Monitors Used: Standard Monitors Preoperative Comments:: 70 yo female for screening colonoscopy. Sig PMHx: never smoker, occ EtOH, LBBB, HTN (amlodipine, HCTZ, losartan). Prev Anes: PONV, scop patch worked well for her. discussed side effects of along with how long it takes the patch to work, but agreed that since it works that we will put it on her and she can pull it off early if needed. does get motion sick very easily.
[2021-11-17] MEDS: Lactated Ringers 1,000 ML 80 ML IV (08:48)
[2021-11-17 08:54] VITALS: BMI 26.0
--- NOTE | 2021-11-17 09:30 | BOWEL_PTH ---
PATIENT: Claire Valera LOC: [facility] U#:[id number] AGE/SX: 70/F ROOM: RE11/17/[address]: Jordana Mtz : 1950 BED: DIS: 11/17/2021 SPEC #: [id number] RECD: 11/17/21 11:33 STATUS: JENNIFER RECody #: [id number] ILEANA: 11/17/21 09:[address]: Jordana Mtz DEPT: Surgical Specimen RECD BY: Dinorah Acharya ENTERED: 11/17/21 11:35 SP TYPE: Bowel OTHR DR: Nicci Castelan MD, DC Tissues: 1 - BIOPSY BOWEL Procedures: GROSS AND MICRO LEVEL 4 Comments: [id number]
[2021-11-17 10:12] VITALS: BP 92/61; PULSE 67; RESP 16; TEMP 36.2; O2SAT 97
[2021-11-17 10:42] VITALS: BP 138/66; PULSE 62; RESP 16; TEMP 36.4; O2SAT 100
--- NOTE | 2021-11-17 10:45 | W.ANESPOSTOP ---
Postoperative Evaluation Date, Time and Location Date Performed: 11/17/21 Time Performed: 10:45 Patient Location: Day Surgery Unit Vital Signs Most Recent Imported Vital Signs: Most Recent Vital Signs Temp Pulse Resp BP Pulse Ox 36.4 C L 62 16 138/66 100 11/17/21 10:42 11/17/21 10:42 11/17/21 10:42 11/17/21 10:42 11/17/21 10:42 Pain Score Most Recent Pain Score: Most Recent Pain Score Pain Level 0 11/17/21 10:42 Assessment Mental Status: Awake (Alert & Oriented to Patient Baseline) Airway and Respiratory Function: Patent airway with normal (patient baseline) respiratory exam Cardiovascular Function: Hemodynamically Stable Hydration Status: Adequately Hydrated Nausea & Vomiting: No Nausea or Vomiting Pain: Pt. Denies Any Pain Peripheral Nerve Block: Patient did not receive a nerve block
== END 2021-11-17 11:12 | disposition home or self-care (01) ==
LOC: SUR 08:10
PROVIDERS: PCP Family Medicine; Visit Provider Surgery
PROC: 0DJD8ZZ Inspection of Lower Intestinal Tract, Via Natural or Artificial Opening Endoscopic (ICD-10-PCS; CPT 45378; principal; 2021-11-17 09:00)
DX: Z12.11 Encounter for screening for malignant neoplasm of colon (principal); D12.4 Benign neoplasm of descending colon; Z80.0 Family history of malignant neoplasm of digestive organs
CPT/HCPCS: 45380; 88305; J2001; J2405; J2704

== ENCOUNTER 2022-03-22 03:15 | Outpatient (CLI) | payer MEDICARE, BC, SELFPAY ==
[2022-03-22 13:50] LABS: ALT 33 U/L (14-59); AST 21 U/L (15-37); Alkaline Phosphatase 86 U/L (46-116); Anion Gap 8.1 mmol/L (3-11); BUN 16 mg/dL (7-18); Bilirubin, Total 0.7 mg/dL (0.2-1.0); CO2 27.9 mmol/L (21.0-32.0); CREATININE 0.5 mg/dL (0.55-1.02); Calculated LDL 82 mg/dL (<100); Chloride 100 mmol/L (98-107); Cholesterol 162 mg/dL (<200); Glucose 98 mg/dL (74-106); HDL Cholesterol 74 mg/dL (40-60); Potassium 4.2 mmol/L (3.5-5.1); Sodium 136 mmol/L (136-145); Total Protein 7.1 g/dL (6.4-8.2); Triglyceride 31 mg/dL (<150)
== END 2022-03-22 03:16 | disposition home or self-care (01) ==
LOC: LOS 03:15
PROVIDERS: PCP Family Medicine; Visit Provider Family Medicine
DX: E78.00 Pure hypercholesterolemia, unspecified (principal); I10 Essential (primary) hypertension
CPT/HCPCS: 36415; 80053; 80061

== ENCOUNTER 2022-07-23 11:11 | Outpatient (CLI) | payer MEDICARE, BC, SELFPAY ==
--- NOTE | 2022-07-23 11:00 | DI.RAD_ITS ---
Exam(s) XR KNEE RT 2V AP,LAT EXAM: XR KNEE RT 2V AP,LAT INDICATION: f/u L TKA. COMPARISON: CR XR KNEE RT 2V AP,LAT from 07/10/2021 TECHNIQUE: 2D digital imaging was performed. Two views. FINDINGS: There has been no change in the alignment of the total knee prosthesis or appearance of the surroundi ng bone. DATA REPOSITORY: RADIATION DOSE DELIVERED:
--- NOTE | 2022-07-23 11:00 | DI.RAD_ITS ---
Exam(s) XR KNEE LT 2V AP,LAT EXAM: XR KNEE LT 2V AP,LAT INDICATION: f/u R TKA. COMPARISON: CR XR KNEE LT 2V AP,LAT from 07/10/2022 TECHNIQUE: 2D digital imaging was performed. Two views. FINDINGS: There has been no change in the alignment of the total knee prosthesis or appearance of the surroundi ng bone. DATA REPOSITORY: RADIATION DOSE DELIVERED:
== END 2022-07-23 11:12 | disposition home or self-care (01) ==
LOC: DIORS 11:12
PROVIDERS: PCP Family Medicine; Referring Provider Family Medicine; Visit Provider Student in an Organized Health Care Education/Training Program
DX: Z96.652 Presence of left artificial knee joint (principal); Z96.651 Presence of right artificial knee joint
CPT/HCPCS: 99213; 73560

== ENCOUNTER → 2022-10-09 01:14 | Outpatient (CLI) | payer MEDICARE, BC, SELFPAY ==
--- NOTE | 2022-10-09 07:15 | DI.MAMMO_ITS ---
Exam(s) MAMMO SCREENING EXAM: MAMMO SCREENING CLINICAL HISTORY: screening,z12.39 TECHNIQUE: Bilateral full field digital CC and MLO mammographic images were obtained with 3D tomosyn thesis and utilizing computer aided detection (CAD). COMPARISON: Available for comparison. FINDINGS: Masses/Architectural Distortion: None seen. Microcalcifications: No suspicious pleomorphic-type are seen. Skin Thickening/Nipple Retraction: None. IMPRESSION: 1. No significant interval change with no specific features of malignancy noted. 2. Unless there is more urgent need, screening mammography is recommended, as per [employer] guidelines. BI-RADS Category 1 - Negative Breast Density - Category B - Scattered areas of fibroglandular density Breast density category C or D implies that the patient has dense breast tissue. Dense breast tissue is very common and is not abnormal but dense breast tissue can make it harder to find cancer on a ma mmogram. Also, dense breast tissue may increase their breast cancer risk. This information about the result of the mammogram report was provided to the patient to raise their awareness. Use this report when you speak with the patient about their risks for breast cancer, which includes their family hist ory. At that time, you may recommend for more screening tests (Ultrasound or MRI) as they might be us eful based on their risk. A negative radiographic report should not delay biopsy if a dominant or clinically suspicious mass is present. Up to ten percent of cancers are not identified on mammography. A negative report may reinforce clinical impression. Adenosis and dense breasts may obscure an underlying neoplasm. False positive reports average 6 to 10%. Patient will receive a letter notifying them of these results.
--- NOTE | 2022-10-09 07:15 | DI.DEXA_ITS ---
Exam(s) XR DEXA BONE DENSITY W/WO JASON EXAM: XR DEXA BONE DENSITY W/WO JASON CLINICAL HISTORY: osteoporosis, m81.0 TECHNIQUE: COMPARISON: Comparison examination is 01/04/2010. FINDINGS: Lateral Spine Image: Unremarkable. No compression deformities identified. Left hip: Total T-Score: -1.3. This compares to -0.7 on the prior examination. Total Z-Score: 0.4 T- and Z-scores: Findings are consistent with osteopenia. Lumbar Spine: Total T-Score: -0.5. This compares to -0.4 on the prior examination. Total Z-Score: 1.8 T- and Z-scores: Within normal limits. IMPRESSION: No evidence of osteoporosis.
== END ==
PROVIDERS: PCP Family Medicine; Visit Provider Family Medicine
DX: Z12.31 Encounter for screening mammogram for malignant neoplasm of breast (principal); M85.88 Other specified disorders of bone density and structure, other site; Z13.820 Encounter for screening for osteoporosis
CPT/HCPCS: 77063; 77067; 77080

== ENCOUNTER 2023-03-21 03:06 | Outpatient (CLI) | payer MEDICARE, SELFPAY ==
[2023-03-21 12:39] LABS: ALT 32 U/L (14-59); AST 25 U/L (15-37); Albumin 3.9 g/dL (3.4-5.0); Alkaline Phosphatase 81 U/L (46-116); Anion Gap 4.2 mmol/L (3-11); BUN 15 mg/dL (7-18); Bilirubin, Total 1.1 mg/dL (0.2-1.0); CO2 30.8 mmol/L (21.0-32.0); CREATININE 0.6 mg/dL (0.55-1.02); Calcium 9.3 mg/dL (8.5-10.1); Calculated LDL 85 mg/dL (<100); Chloride 102 mmol/L (98-107); Cholesterol 172 mg/dL (<200); Estimated GFR 94.72 (mL/min/1.73m2); Glucose 108 mg/dL (74-106); HDL Cholesterol 80 mg/dL (40-60); Potassium 3.9 mmol/L (3.5-5.1); Sodium 137 mmol/L (136-145); Total Protein 7.7 g/dL (6.4-8.2); Triglyceride 38 mg/dL (<150)
== END 2023-03-21 03:07 | disposition home or self-care (01) ==
LOC: LOS 03:07
PROVIDERS: PCP Family Medicine; Visit Provider Family Medicine
DX: I10 Essential (primary) hypertension (principal)
CPT/HCPCS: 36415; 80053; 80061

== ENCOUNTER 2024-03-19 05:04 | Outpatient (CLI) | payer MEDICARE, SELFPAY ==
[2024-03-19 12:46] LABS: ALT 30 U/L (14-59); AST 22 U/L (15-37); Albumin 3.9 g/dL (3.4-5.0); Alkaline Phosphatase 74 U/L (46-116); Anion Gap 3.3 mmol/L (3-11); BUN 11 mg/dL (7-18); Bilirubin, Total 0.8 mg/dL (0.2-1.0); CO2 28.7 mmol/L (21.0-32.0); CREATININE 0.6 mg/dL (0.55-1.02); Calcium 9.2 mg/dL (8.5-10.1); Calculated LDL 67 mg/dL (<100); Chloride 102 mmol/L (98-107); Cholesterol 154 mg/dL (<200); Estimated GFR 94.13 (mL/min/1.73m2); Glucose 104 mg/dL (74-106); HDL Cholesterol 77 mg/dL (40-60); Potassium 3.5 mmol/L (3.5-5.1); Sodium 134 mmol/L (136-145); Total Protein 7.5 g/dL (6.4-8.2); Triglyceride 52 mg/dL (<150)
== END 2024-03-19 05:05 | disposition home or self-care (01) ==
LOC: LOS 05:04
PROVIDERS: PCP Family Medicine; Visit Provider Family Medicine
DX: I10 Essential (primary) hypertension (principal)
CPT/HCPCS: 36415; 80053; 80061; 83735

== ENCOUNTER → 2024-04-15 01:45 | Outpatient (CLI) | payer MEDICARE, SELFPAY ==
--- NOTE | 2024-04-15 08:30 | DI.MAMMO_ITS ---
Exam(s) MAMMO SCREENING EXAM: MAMMO SCREENING CLINICAL HISTORY: screening, Z12.39 TECHNIQUE: Mammograms were interpreted according to the usual protocol including computer analysis w [employer] CAD system, tomosynthesis and C-view imaging. COMPARISON: 2015 through 2021 FINDINGS: The breasts are composed of scattered fibroglandular densities, Breast Density category B. No suspicious masses or suspicious microcalcifications are seen. No skin thickening or abnormal axillary lymph nodes are seen. There has been no significant change from prior exams. IMPRESSION: BI-RADS Category 1, Negative mammogram Yearly screening mammography is recommended. Breast Density - Category B, scattered fibroglandular densities. A negative radiographic report should not delay biopsy if a dominant or clinically suspicious mass is present. Up to ten percent of cancers are not identified on mammography. A negative report may reinforce clinical impression. Adenosis and dense breasts may obscure an underlying neoplasm. False positive reports average 6 to 10%. Patient will receive a letter notifying them of these results.
== END ==
PROVIDERS: PCP Family Medicine; Visit Provider Family Medicine
DX: Z12.31 Encounter for screening mammogram for malignant neoplasm of breast (principal)
CPT/HCPCS: 77063; 77067

== ENCOUNTER 2024-07-16 13:35 | Emergency (ER) | payer MEDICARE, SELFPAY ==
[2024-07-16] VITALS (11 sets, daily range): BP systolic 128–140; BP diastolic 82–85; PULSE 62–84; RESP 12–21; TEMP 36.5; O2SAT 96–98
--- NOTE | 2024-07-16 13:30 | RT.EKG_ITS ---
APPROVED REPORT Exam: Resting ECG Reason for Exam: SOB Patient Location: E HR:77 bpm ECG Measurements Heart Rate 77 AXIS MT 164 P 125 QRSd 143 QRS 217 QT 437 T 54 QTc 494 Conclusion sinus 77 no stemi
--- NOTE | 2024-07-16 14:00 | DI.RAD_ITS ---
Exam(s) XR CHEST 2V PA LATERAL EXAM: XR CHEST 2V PA LATERAL CLINICAL HISTORY: sob TECHNIQUE: 2D digital imaging was performed. Two views. COMPARISON: No exams were available for comparison FINDINGS: HEART: Normal size. Aorta: Tortuous. PULMONARY VASCULATURE: Normal. MEDIASTINUM: Unremarkable. LUNGS: Mild fibrotic changes, otherwise clear. PLEURAL SPACE: No pleural effusion or pneumothorax. BONE:Unremarkable for age. SOFT TISSUES: Unremarkable. IMPRESSION: No acute abnormality. DATA REPOSITORY: RADIATION DOSE DELIVERED:
--- NOTE | 2024-07-16 14:21 | ED.GENADUL_ITS ---
Discharge Plan Disposition Patient Disposition: Home Condition: Stable Discharge Details Clinical Impression: COVID-19, SOB (shortness of breath) Primary Care Provider: Nicci Castelan ED Provider: Charles Taylor Home Meds and New Rx's Prescriptions: No Action aspirin [Adult Aspirin Regimen] 81 mg tablet,delayed release (DR/EC) 81 mg PO DAILY magnesium 250 MG tablet 500 mg PO HS Patient Comments: Pt states she is taking once daily. 09/10/16 ts cholecalciferol (vitamin D3) 1,000 UNIT capsule 1,000 unit PO HS ascorbic acid (vitamin C) [Vitamin C] 250 MG tablet 500 mg PO DAILY PRN Patient Comments: 11/14/17 pt states she does not take on a regular basis. ts vitamin B complex 1 EACH tablet 1 ea PO DAILY Co Q-10 (with Vit E) 1 EACH capsule 1 ea PO DAILY hydrochlorothiazide 25 mg tablet 25 mg PO DAILY Qty: 90 3RF atorvastatin 40 mg tablet 40 mg PO HS Qty: 90 3RF losartan 100 mg tablet 100 mg PO DAILY Qty: 90 3RF amlodipine 5 mg tablet See Rx Instructions .ROUTE .COMPLEX Qty: 90 6RF Dose Instruction: TAKE ONE TABLET BY MOUTH EVERY DAY Patient Comments: takes daily Rx Instructions: TAKE ONE TABLET BY MOUTH EVERY DAY potassium chloride 20 mEq tablet extended release 20 meq PO DAILY Qty: 90 3RF acetaminophen [Tylenol Extra Strength] 500 mg tablet 500 mg PO Q6H PRNQty: 90 0RF Discharge Instructions Instructions: COVID-19 ED Additional Instructions: * blood work and imaging look normal today * your symptoms should continue to improve as you heal from Covid infection * if you develop chest pain, severe shortness of breath or other concerns please follow up with PCP or return to the ED Discharge Data Discharge Date/Time-TO BE ENTERED AT DEPARTURE: 07/16/24 16:15 HPI General Date/Time Provider Initiated Documentation: 07/16/24 13:55 . Limitations to Documentation: no limitations . Information obtained by: patient . HPI Narrative: 73-year-old female with past medical history of hypertension presents for evaluation of shortness of breath. She reports that 8 days ago she started having some URI symptoms, fever and cough. She reports that 7 days ago she tested positive for COVID. She reports that her fevers have resolved. She has had some mild nasal congestion and other mild cold symptoms that have essentially resolved. Initially had a nonproductive cough. But reports for the last 5 days she has been feeling shortness of breath. Shortness of breath is worse with exertion. She reports that she has no symptoms if she is laying still. She is able to get up and do more activities around the house, but this does cause the shortness of breath. It relieves with rest. It is not associated with chest pain, but she has been having a slight pressure sensation. She denies any lower extremity swelling. Denies persistence or recurrence of fever. Does not really have any persistent cough at this time. Did not take Paxlovid for this infection. Related Data Home Medications ?Medication ?Instructions ?Recorded ?Confirmed cholecalciferol (vitamin D3) 25 1,000 unit PO HS 01/06/13 07/16/24 mcg (1,000 unit) capsule magnesium 250 mg tablet 500 mg PO HS 01/06/13 07/16/24 ascorbic acid (vitamin C) 250 mg 500 mg PO DAILY PRN 11/17/13 07/16/24 tablet (Vitamin C) vitamin B complex 1 ea PO DAILY 12/13/14 07/16/24 coenzyme Q10 50 mg-vitamin E 5 1 ea PO DAILY 07/05/15 07/16/24 unit capsule (Co Q-10 (with Vit E)) acetaminophen 500 mg tablet 500 mg PO Q6H PRN #90 tabs 20 07/16/24 (Tylenol Extra Strength) aspirin 81 mg tablet,delayed 81 mg PO DAILY 11/09/21 07/16/24 release (Adult Aspirin Regimen) atorvastatin 40 mg tablet 40 mg PO HS #90 tabs 03/04/24 07/16/24 hydrochlorothiazide 25 mg tablet 25 mg PO DAILY #90 tab-caps 03/04/24 07/16/24 losartan 100 mg tablet 100 mg PO DAILY #90 tab-caps 03/13/24 07/16/24 amlodipine 5 mg tablet See Rx Instructions .Route 03/18/24 07/16/24 .COMPLEX #90 tabs potassium chloride 20 mEq 20 meq PO DAILY #90 tabs 04/15/24 07/16/24 tablet,extended release Previous Rx's ?Medication ?Instructions ?Recorded acetaminophen 500 mg tablet 500 mg PO Q6H PRN #90 tabs 07/26/20 (Tylenol Extra Strength) atorvastatin 40 mg tablet 40 mg PO HS #90 tabs 03/04/24 hydrochlorothiazide 25 mg tablet 25 mg PO DAILY #90 tab-caps 03/04/24 losartan 100 mg tablet 100 mg PO DAILY #90 tab-caps 03/13/24 amlodipine 5 mg tablet See Rx Instructions .Route 03/18/24 .COMPLEX #90 tabs potassium chloride 20 mEq 20 meq PO DAILY #90 tabs 04/15/24 tablet,extended release Allergies Allergy/AdvReac Type Severity Reaction Status Date / Time Sulfa (Sulfonamide Allergy Severe Swelling/Hi Verified 07/16/24 13:43 Antibiotics) ves soy AdvReac Intermediate Bloating Verified 07/16/24 13:43 General Stated Complaint: SOB ROSITA: 3 Exam Narrative Exam Narrative: Review of Systems: All systems reviewed & are unremarkable except as noted in HPI and below Well-developed, no acute distress Afebrile NCAT RRR, no murmur Unlabored respiratory effort, clear bilaterally Nondistended abdomen , soft nontender Extremities w/o edema or calf tenderness Course Vital Signs Vital signs: Vital Signs Temperature 36.5 C 07/16/24 13:37 Pulse 84 07/16/24 13:37 Respiratory Rate 18 07/16/24 13:37 Blood Pressure 136/82 07/16/24 13:37 Pulse Oximetry 96 07/16/24 13:37 Temperature 36.5 C 07/16/24 14:17 Pulse 84 07/16/24 14:17 Respiratory Rate 18 07/16/24 14:17 Respiratory Effort Short of Breath 07/16/24 13:40 Blood Pressure 136/82 07/16/24 14:17 Pulse Oximetry 96 07/16/24 14:17 Pain Level 0 07/16/24 14:17 Medical Decision Making Emergent evaluation of shortness of breath in the setting of a COVID infection. Patient is 1 week out of a positive test. She does not have any concerning symptoms for respiratory distress or respiratory failure. She is not tachypneic, she is not hypoxic. She is speaking comfortably at rest. Her EKG is reviewed. She does have left bundle branch block, sinus 77. No STEMI. The patient does not have a prior EKG in the system for comparison. Initial differential includes persistent COVID symptoms, pneumonia, myocarditis or pulmonary embolism seems less likely given her well appearance and vital signs. Plan for lab work, chest x-ray. If D-dimer is elevated, may need CT scan to further evaluate. 1520 Lab work reviewed. No elevation in white blood cell count. No anemia noted. The D-dimer is slightly above the age-adjusted cutoff, which for this patient would be 740. The results at 755. Given this finding, we will get a CTA to evaluate for pulmonary embolism. Her CMP does not demonstrate significant electrolyte derangement. Her BNP is not elevated. Making heart failure unlikely. Her first troponin was 7. Will get the second troponin to determine if there is a significant delta. Though I have a low suspicion for ACS causing the symptoms. CT imaging was negative for pulmonary embolism. Patient remained comfortable in the emergency department without requiring any respiratory support. Her second troponin was 6. Based on algorithm, patient can follow-up with her PCP as needed. She was provided return precautions for her shortness of breath and if she develops chest pain she should return for reevaluation. Quality:SDOH Health Related Social Needs: No Data to Display PFSH All Active Problems (Updated 07/16/24 @ 15:59 by Charles Taylor MD) SOB (shortness of breath) (Acute) Plantar fasciitis, left (Acute) History of excessive cerumen (Acute) Shoulder pain, left (Acute) Essential hypertension (Chronic) COVID-19 (Acute) 07/31/2022 Mixed hearing loss, bilateral (Acute) Adenomatous polyp of ascending colon (Acute) repeat in 2026 Left bundle branch block (Chronic) echo and MPI normal Medical History Screening for colon cancer Normal colonoscopy Hx of head injury 2009 with major blood loss, with hospitalization and transfusion. Per pt. all is resolved. Systolic murmur F/U with Dr. Castelan, regarding murmur. No issues at this time. 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 Maternal Grandmother , 83 Diabetes Paternal Grandmother Heart disease Son , 7 days Ornithine transcarbamoylase deficiency Down syndrome Son , 5 days Ornithine transcarbamoylase deficiency Daughter Ornithine transcarbamoylase deficiency Daughter Ornithine transcarbamoylase deficiency Thyroid cancer Social History Smoking/Tobacco Use Status: Never Second Hand Exposure: Yes Smoking risk assessment performed?: Yes Alcohol Intake: current Alcohol Intake frequency: a few times a week Alcohol type: wine Drug use: Rarely Substance use type: marijuana Adopted: No Caregiver/Support person: No Foster care: No Household members: spouse, family and children Housing: house Number of Children: 2 number of grandchildren: 4 Communication Needs: Hard of Hearing Education Level: college Do you need help understanding health information?: Never current occupation: Homemaker Pets and animals: Yes Pets and animals: cat(s) and dog(s) Sexually active: Yes Do you think of yourself as: straight/heterosexual Current gender identity: female What is your relationship status?: How often do you talk on the phone with friends or family?: three or more times per week Do you belong to any clubs or organized social groups?: no Panel score (0-1 are the most socially isolated patients): 2 What type of physical activity do you participate in: walking, weight lifting and other Details: hiking with poles Duration: 30-45 minutes/day Frequency: 3-4 times per week Ana/Pentecostal: No preference Agree to transfusion: Yes Seatbelt use: always Helmet use: Yes Helmet use: always Drive intox or ride w/intox pole truck driver: No Working smoke detector in home: Yes Firearms in home: Yes Firearms unloaded and locked: Yes Do you feel safe at home: Yes Do you feel safe in your relationship?: Yes Victim of physical abuse: No Victim of emotional abuse: No Victim of sexual abuse: No
[2024-07-16 14:26] LABS: Abs Immature Grans 0.03 10^3/uL (0.0-0.06); Absolute Basophil Count 0.03 10^3/uL (0.0-0.2); Absolute Eosinophil Count 0.04 10^3/uL (0.0-0.7); Absolute Lymphocyte Count 1.91 10^3/uL (1.2-3.4); Absolute Monocyte Count 0.43 10^3/uL (0.1-0.8); Absolute Neutrophil Count 4.22 10^3/uL (1.2-6.7); Basophils % 0.5 %; Eosinophils % 0.6 %; HCT 39.8 % (36.0-46.0); HGB 13.8 g/dL (11.2-15.7); Immature Grans % 0.5 %; Lymphocytes % 28.7 %; MCH 30.5 pg (27.0-33.0); MCHC 34.7 % (32.0-36.0); MCV 88 fL (80-95); MPV 9.1 fL (8.0-11.0); Monocytes % 6.5 %; Neutrophils % 63.2 %; Platelet Count 265 10^3/uL (130-400); RBC 4.53 10^6/uL (3.93-5.22); RDW 12.6 % (11.7-14.6); RDW-SD 40.5 fL; WBC 6.66 10^3/uL (4.4-10.8)
[2024-07-16 14:52] LABS: Prothrombin Time 9.9 sec (9.1-11.1)
[2024-07-16 15:11] LABS: D-Dimer 755 ng/mlFEU (<500)
[2024-07-16 15:13] LABS: ALT 28 U/L (14-59); AST 19 U/L (15-37); Albumin 3.7 g/dL (3.4-5.0); Alkaline Phosphatase 88 U/L (46-116); Anion Gap 7.1 mmol/L (3-11); BUN 13 mg/dL (7-18); Bilirubin, Total 0.74 mg/dL (0.2-1.0); CO2 27.9 mmol/L (21.0-32.0); CREATININE 0.7 mg/dL (0.55-1.02); Calcium 9.5 mg/dL (8.5-10.1); Chloride 97 mmol/L (98-107); Glucose 110 mg/dL (74-106); NT-proBNP 133 pg/mL (<300); Potassium 3.6 mmol/L (3.5-5.1); Sodium 132 mmol/L (136-145); Total Protein 7.6 g/dL (6.4-8.2); Troponin I 7 ng/L (<or=51)
--- NOTE | 2024-07-16 15:15 | DI.CT_ITS ---
Exam(s) CT CHEST PE CTA EXAM: CT CHEST PE CTA CLINICAL HISTORY: sob. TECHNIQUE: Imaging Protocol: Axial CT angiography was performed with multi-slice acquisition and mu lti-planar reconstructions as well as axial, coronal and sagittal MIP reconstructions. CONTRAST MATERIAL: Intravenous: Omnipaque 350 Contrast volume:100 ml COMPARISON: CR XR CHEST 2V PA LATERAL from 07/16/2024 FINDINGS: Pulmonary Arteries: No evidence of filling defect to suggest pulmonary emboli. Tracheobronchial tree: No mucous plugging. Mediastinum and Zabrina: No dominant adenopathy or fluid collection. Pulmonary parenchyma: No consolidation or dominant measurable mass. Expiratory changes. Pleura: No effusion or pneumothorax. Heart: The heart is not dilated. Mild coronary artery calcifications are seen. Aorta: Ascending aorta measures 4.2 cm in diameter. No dissection. Upper abdomen: No acute findings. Bones: Unremarkable for age. Tubes, Catheters, and Lines: None Soft tissues: Unremarkable. IMPRESSION: No evidence of pulmonary embolism or other acute abnormality. RADIATION DOSE DELIVERED: Total DLP DATA REPOSITORY: All CT scans at this facility are submitted to the National Radiology Data Registry (NRDR) Dose Index Registry (DIR) with the [employer] (A[employer]). RADIATION OPTIMIZATION: All CT scans at this facility use at least one of these dose optimization te chniques: automated exposure control; mA and/or kV adjustment per patient size (includes targeted exa ms where dose is matched to clinical indication); or iterative reconstruction.
[2024-07-16] MEDS: Omnipaque 350 MG/ML 100 ML BTL IJ (15:30)
[2024-07-16] MEDS: Normal Saline - Diluent 50 ML VIAL IJ (15:30)
[2024-07-16 15:58] LABS: Troponin I 6 ng/L (<or=51)
== END 2024-07-16 16:15 | disposition home or self-care (01) ==
PROVIDERS: Emergency Provider Emergency Medicine; PCP Family Medicine
DX: R06.02 Shortness of breath (principal); U07.1 COVID-19; I10 Essential (primary) hypertension; Z79.82 Long term (current) use of aspirin
CPT/HCPCS: 36415; 71275; 80053; 93005; 99285; 71046; 83880; 84484; 85025; 85379; 85610; 85730; 93010; 99284; J3490